=== PATIENT | female | born 1960 | race Caucasian/White ===

== ENCOUNTER 2024-05-12 13:38 | Emergency (ER) | payer OTHER, MEDICARE, SELFPAY ==
--- NOTE | ~2024-05-12 | XR_ITS ---
EXAMINATION: XR chest 2V DATE: 05/12/2024 14:04 INDICATION: Shortness of breath. TECHNIQUE: Frontal and lateral views of the chest were obtained. COMPARISON: Chest 2 views 02/08/2018 FINDINGS: There is mild atelectasis in right midlung zone. No pleural effusion or pneumothorax. The h eart size is normal. Epidural electrodes are noted. There is a right shoulder arthroplasty. IMPRESSION: 1. Mild atelectasis in right midlung zone. Reviewed, dictated and finalized at location A. 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
--- OUTSIDE RECORDS SUMMARY | 2024-05-12 13:43 | XMS_ITS | Encounter Summary ---
Author Organization [facility] Healthcare Address [address] [place] [address] Care Team Providers Care Systems Support Officer Name Role Phone Meg Espinal MD Primary Care Provider Simran Tapia MD Unavailable [phone] Encounter Details Date Type Department Care Team (Late st Contact Info) Description 12/22/2023 Orders Only [facility] [address] [facility] 1[address] [place] [address] Simran Tapia MD [address] [place] [address] Social History Tobacco Use Types Packs/Day Years Used Date Smoking Tobacco: Never Passive Smoke Exposure: Never Smokeless Tobacco: Never Alcohol Use Standard Drinks/Week Comments No 0 (1 standard drink = 0.6 oz pur e alcohol) AUDIT-C Answer Date Recorded Q1: How often do you have a drink containing alcohol? Never 12/25/2023 Q2: How many drinks containi ng alcohol do you have on a typical day when you are drinking? Patient does not drink Q3: How often do you have si x or more drinks on one occasion? Never 12/25/2023 Hunger Vital Sign Answer Date Recorded Worried About Running Out of Food in the Last Ye ar Not on file 08/06/2023 Within the past 12 months, t he food you bought just didn't last and you didn't have money to get more. Never true 08/06/2023 Personal Safety Answer Date Recorded Have you ever been in or are you currently in a harmful physical or emotional relationship or is someone making you feel afraid or unsafe? 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 Use a clean Q-tip to apply. Do not touch Q-tip to tube if it has touched the nose. 22 g 12/22/2023 5 documented in this encounter Plan of Treatment Not on file documented as of this encounter Goals Goal Patient Goal Type Associated Problems Recent Progress Patient-Stated? 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 Minimize further functional decline 2. Maximize quality of life 3. Control pain Strategies: - Activity/exercise program recommendation - Conservative stepwise pain medicine strategy with multi-disciplinary approach - Recommend healthy lifestyle strategies and compensatory methods as needed documented as of this encounter Visit Diagnoses Not on filedocumented in this encounter Discontinued Medications Medication Sig Discontinue Reason Start Date End Da te mupirocin (BACTROBAN) 2 % ointment Apply topically 3 (three) times a day Therapy completed 11/18/2023 12/22/2023 documented as of this encounter Orders Medications Ordered That Sebastien ht Not Have Been Administered Count Last Ordered Date First Ordered Date ceFAZolin (ANCEF) 2,000 mg/2 0 mL in sterile water (premix) 2,000 mg 1 12/22/2023 documented in this encounter Care Teams Systems Support Officer Relationship Specialty Start Date End Date Meg Espinal MD PCP - General Diagnostic Radiology 11/25/22 Simran Tapia MD [address] [place] [address] Anesthesiologist Pain Management 01/15/24 documented as of this encounter
--- OUTSIDE RECORDS SUMMARY | 2024-05-12 13:43 | XMS_ITS | Referral Summary ---
Author Organization [facility] al Address [address] [place] [address] Care Team Providers Care Gang Vibrator Operator Name Role Phone Meg Espinal MD Primary Care Provider Simran Tapia MD Unavailable [phone] Encounters Date Type Department Care Team Description 05/04/2024 Telephone [facility] [address] [place] [address] Advanced Medicine [address] [place] [id number] Simran Tapia MD Lidocaine patch PA approved through 03/30/25 04/26/2024 10:01 AM COURTESY DRIVER - 04/26/2024 11:59 PM COURTESY DRIVER Hospital Encounter [facility] [address] [place] [address] Advanced Medicine [address] [place] [address] Simran Tapia MD Spondylosis of cervical region without myelopathy or radiculopathy Discharge Disposition: Discharge to home or self care 04/22/2024 Telephone [facility] [address] [place] [address] for [facility] Medicine [address] [place] [address] Simran Tapia PMC Preprocedure 03/29/2024 Telephone [facility] [address] [place] [address] Advanced [facility] [address] [place] [address] Simran Tapia MD procedure response 03/29/2024 10:52 AM COURTESY DRIVER - 03/29/2024 11:59 PM COURTESY DRIVER Hospital Encounter [facility] [address] [place] [address] for [facility] Medicine [address] [place] [address] Simran Tapia MD Arthropathy of cervical facet joint (Primary Dx); Spondylosis of lumbar region without myelopathy or radiculopathy Discharge Disposition: Discharge to home or self care 03/22/2024 Telephone [facility] [address] [place] [address] for [facility] [address] [place] [address] Simran Tapia MD PMC Preprocedure 03/12/2024 Telephone [facility] [address] [place] [address] for [facility] Medicine [address] [place] [address] Simran Tapia MD Pre Cert 03/08/2024 Telephone [facility] [address] [place] [address] for [facility] [address] [place] [address] Simran Tapia MD Pre Cert 03/01/2024 Telephone [facility] [address] [place] [address] for [facility] Medicine [address] [place] [address] Sirman Tapia MD Pre Cert 02/25/2024 Telephone [facility] [address] [place] [address] for [facility] Medicine [address] [place] [address] Simran Tapia MD PMC Pre procedure instructions 02/19/2024 [facility] [address] [place] [address] for [facility] Medicine [address] [place] [address] Simran Tapia MD Pre Cert from Last 3 Months Allergies Active Allergy Reactions Criticality Noted Date Comments Adhesive Tape-Silicones Rash,Unknown Medium 04/06/2019 Lamotrigine Other (See comments) Low 01/13/2018 Causes hair loss Latex Rash,Blisters High 05/29/2020 Rizatriptan Palpitations High 04/28/2018 Sumatriptan Chest tightness Medium Topiramate Other (See comments) Low 01/13/2018 Causes hair loss Medications PROAIR HFA 90 mcg/actuation inhalerIndications :Bronchospasm Prevention,Chronic Obstructive Pulmonary Disease Inhale 2 puffs every 6 (six) hours as needed for shortness of breath or wheezing 08/05/19 18 Active fluticasone (FLONASE) 50 mcg/actuation nasal sprayIndications:A llergic Rhinitis Administer 2 sprays into each nostril 2 (two) times a day as needed for allergies 08/06/19 18 Active traZODone (DESYREL) 100 mg tabletIndications: insomnia associated with depression Take 2 tablets (200 mg total) by mouth nightly 12/10/19 18 Active ipratropium-albute rol (DUO-NEB) 0.5-2.5 mg/3 mL nebulizer solutionIndication s:Chronic Obstructive Pulmonary Disease with Bronchospasms Take 3 mL by nebulization every 6 (six) hours as needed for shortness of breath or wheezing 0 02/10/20 18 Active olopatadine (PATADAY) 0.2 % ophthalmic solutionIndication s:Allergic Conjunctivitis Administer 1 drop into both eyes 2 (two) times a day None in over a month 02/14/20 18 Active omeprazole (PriLOSEC) 40 mg capsuleIndications :Treatment of Non-Bleeding Gastric Disorder,gastroeso phageal reflux disease Take 1 capsule (40 mg total) by mouth nightly 07/17/19 21 Active rosuvastatin (CRESTOR) 10 mg tabletIndications: hyperlipidemia Take 1 tablet (10 mg total) by mouth every morning 07/08/19 23 Active cetirizine-pseudoe phedrine ER (ZyrTEC-D) 5-120 mg per 12 hr tabletIndications: Perennial Allergic Rhinitis Take 1 tablet by mouth every morning Active cholecalciferol (VITAMIN D-3) 2000 unit capsuleIndications :Osteoporosis,Nelly min D Deficiency Take 1 capsule (2,000 Units total) by mouth 2 (two) times a day Active nebivoloL (BYSTOLIC) 5 mg tabletIndications: hypertension Take 1 tablet (5 mg total) by mouth every morning 11/08/19 23 Active albuterol-budesoni de 90-80 mcg/actuation HFA aerosol inhaler 2 puff(s), Inhalation, [id number], PRN, 8.5 each, 0, NEEDED FOR SHORTNESS OF BREATH, 17, Route to Pharmacy Electronically, [id number], [id number], 155, cm, 02/07/23 11:49:00 COURTESY DRIVER, Height, 109.09, kg, 02/07/23 11:49:00 COURTESY DRIVER, Weight 12/06/19 23 Active Linzess 290 mcg capsuleIndications :Constipation Predominant Irritable Bowel Syndrome Take 1 capsule (290 mcg total) by mouth daily as needed 04/03/19 24 Active lidocaine (LIDODERM) 5 %Indications:Posth erpetic Neuralgia,do not use near incision site Apply 3 patches topically every morning Shoulder and knees, lower back 30 patch 11 05/27/19 24 Active Breztri Aerosphere 160-9-4.8 mcg/actuation inhalerIndications :Bronchospasm Prevention with COPD Inhale 2 puffs 2 (two) times a day 05/22/19 24 Active naloxone (NARCAN) 4 mg/actuation spray,non-aerosol Administer 1 spray into affected nostril(s) as needed for opioid reversal or respiratory depression Never had to use 06/09/19 24 Active BD Ultra-Fine Mini Pen Needle 31 gauge x 3/16 needle USE TO INJECT 4 TIMES DAILY 07/09/[address] (CYMBALTA) 30 mg capsule Take 1 capsule (30 mg total) by mouth daily 90 capsule 10/06/19 24 Active lidocaine (LIDODERM) 5 % Place 1 patch on the skin daily Remove & discard patch within 12 hours or as directed by MD. 30 patch 6 10/06/19 24 Active Additional Information Patient not taking.Informant: Self, Reported on 12/25/2023 insulin aspart niacinamide (FIASP) 100 unit/mL (3 mL) pen for injectionIndicatio ns:type 2 diabetes mellitus Inject 18 Units under the skin 2 (two) times a day with meals 10/31/19 24 Active TRESIBA 100 unit/mL (3 mL) pen for injectionIndicatio ns:type 2 diabetes mellitus Inject 0.64 mL (64 Units total) under the skin every morning Active butalbital-acetami nophen-caffeine (ESGIC) 50-325-40 mg per tabletIndications: Migraine Take 1 tablet by mouth every 4 (four) hours as needed for headaches 2 tablets once a month Active cyanocobalamin (Vitamin B-12) 1,000 mcg tabletIndications: Prevention of Vitamin B12 Deficiency Take 1 tablet (1,000 mcg total) by mouth every morning Active ALPRAZolam (XANAX) 0.25 mg tablet Take 1 tablet (0.25 mg total) by mouth nightly as needed for anxiety Active baclofen (LIORESAL) 5 mg tablet Take 1 tablet (5 mg total) by mouth 3 (three) times a day 270 tablet 1 12/26/19 24 025 Active meloxicam (MOBIC) 15 mg tabletIndications: Osteoarthritis Take 1 tablet (15 mg total) by mouth daily 30 tablet 01/19/20 24 Active sertraline (ZOLOFT) 100 mg tablet Take 1 tablet (100 mg total) by mouth 2 (two) times a day 01/03/20 24 Active amLODIPine (NORVASC) 5 mg tablet Take 1 tablet (5 mg total) by mouth daily 03/22/20 24 Active pregabalin (LYRICA) 300 mg capsule Take 1 capsule (300 mg total) by mouth 2 (two) times a day 60 capsule 3 04/05/19 25 Active buprenorphine (BUTRANS) 20 mcg/hour Place 1 patch on the skin every 7 days for 28 days 4 patch 05/03/19 25 025 Active tobramycin-dexAMET Hasone (TOBRADEX) ophthalmic solutionIndication s:Superficial Ocular Infection Administer 1 drop into both eyes daily as needed None in over a month 03/10/20 23 025 Discontin ued(Thera py completed ) mupirocin (BACTROBAN) 2 % ointment Apply topically 2 (two) times a day both nostrils for 2 days until sugery. Use a clean Q-tip to apply. Do not touch Q-tip to tube if it has touched the nose. 22 g 12/22/19 24 025 Discontin ued(Thera py completed ) chlorhexidine (HIBICLENS) 4 % external liquidIndications: Skin Disinfection As instructed by the clinic 120 mL 09/23/ 025 Discontin ued(Thera py completed ) ciprofloxacin (CILOXAN) 0.3 % ophthalmic solution PLACE 2 DROPS IN BOTH EYES EVERY 4 HOURS FOR 7 DAYS 03/08/20 24 025 Discontin ued(Thera py completed ) buprenorphine (BUTRANS) 20 mcg/hour Place 1 patch on the skin every 7 days for 28 days 4 patch 04/05/19 25 025 Discontin ued(Reord er) Active Problems Problem Noted Date Diagnosed Date Pain in the shoulder 10/14/2023 Asthma exacerbation 10/14/2023 Chest pain 10/14/2023 Physical deconditioning 10/14/2023 Connective tissue disease 10/14/2023 Other fatigue 07/03/2023 Sacroiliitis (HCC) - Bilateral 07/01/2023 Spondylosis of lumbar region without myelopathy or radiculopathy 07/01/2023 Arthropathy of cervical facet joint 07/01/2023 Shortness of breath 01/24/2023 Acute hypoxemic respiratory failure 01/24/2023 Assessment & Plan (01/25/2023 5:31 PM CDT): Chica Perez is a 62 year old female with a history of COPD (follows at [facility] with Dr. Jensen, on Symbicort and albuterol), CAD, HTN, primary hyperparathyroidism s/p parathyroidectomy, nephrolithiasis, osteoporosis, migraines, and GERD who was admitted on 01/21/23 after an elective, right total shoulder arthroplasty. Her post-operative course has been complicated by hypoxemic respiratory failure, requiring 2-3L of supplemental O2. Post-operative chest radiograph shows an elevated right hemidiaphragm. CT scan showed elevated right hemidiaphragm, RLL collapse and partial collapse of the RML. 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 Depending on severity of paralysis, discuss with pain regard potential removal of nerve block catheter - Walk O2 assessment prior to discharge - Azithromycin 500 mg daily for three days for bronchitis/COPD. - Schedule Duonebs - Defer prednisone for now, per patient preference. - Please encourage pulmonary toilet with Aerobika, IS, OOBTC. Elevated hemidiaphragm 01/24/2023 Assessment & Plan (01/24/2023 5:43 PM CDT): As above. S/P shoulder replacement, right 01/21/2023 Right carpal tunnel syndrome 10/31/2022 Glenohumeral arthritis, right 09/23/2022 Abnormal feces 08/21/2022 08/21/2022 Anxiety 08/21/2022 08/21/2022 Muscle pain 08/21/2022 08/21/2022 Chronic pain disorder 08/21/2022 08/21/2022 Chronic obstructive bronchitis 08/21/2022 0 08/21/2022 Diabetic polyneuropathy (CMS/HCC) 08/21/2022 08/21/2022 Dehydration symptoms 08/21/2022 08/21/2022 Disorder of connective tissue 08/21/2022 Disorder of intervertebral disc of lumbar spine 08/21/2022 08/21/2022 Dizziness and giddiness 08/21/2022 08/22/19 Dyspareunia due to medical condition in female 0 08/21/2022 08/21/2022 High serum ferritin 08/21/2022 08/21/2022 Gastroparesis 08/21/2022 08/21/2022 Fatty liver 08/21/2022 08/21/2022 Excessive sweating 08/21/2022 08/21/2022 Essential tremor 08/21/2022 08/21/2022 Elevated liver enzymes 08/21/2022 Hyperlipidemia 08/21/2022 08/21/2022 Incontinence 08/21/2022 08/21/2022 Insomnia 08/21/2022 08/21/2022 Intracranial aneurysm 08/21/2022 08/21/2022 Overview (08/21/2022): CTA 03/2015 4mm Morbid obesity 08/21/2022 08/21/2022 Polyp of colon 08/21/2022 08/21/2022 Polymyalgia rheumatica (CMS/HCC) 08/21/2022 08/21/2022 Pain in right knee 08/21/2022 08/21/2022 Osteopenia 08/21/2022 08/21/2022 Nausea 08/21/2022 08/21/2022 NAFL (nonalcoholic fatty liver) 08/21/2022 08/21/2022 Positive antinuclear antibody 08/21/2022 Recurrent herpes labialis 08/21/20222022 Rheumatoid arthritis(714.0) 08/21/202207/30 Synovitis and tenosynovitis, unspecified 023 08/21/2022 Overview (08/21/2022): achillies heel right Sinus congestion 08/21/2022 08/21/2022 Seasonal allergic rhinitis 08/21/202208/21 S/P parathyroidectomy 08/21/2022 08/21/2022 Tortuous colon 08/21/2022 08/21/2022 Vaginal atrophy 08/21/2022 08/21/2022 Vaginal dryness, menopausal 08/21/202207/30 Vitamin D deficiency 08/21/2022 08/21/2022 Diabetes mellitus 07/11/2022 08/21/2022 Acute non-recurrent maxillary sinusitis 11/07/1908/21/2022 Bronchitis 11/06/2021 08/21/2022 KRISTEN (acute kidney injury) 11/05/20212022 Irritable bowel syndrome (IBS) 04/28/2020 Abdominal bloating 09/20/2019 Adverse effect of other opioids, initial encount er 09/20/2019 Drug-induced constipation 09/20/2019 History of colonic polyps 09/20/2019 Vomiting without nausea 09/20/2019 HTN (hypertension) 08/07/2018 COPD (chronic obstructive pulmonary disease) 12/2018 Assessment & Plan (01/24/2023 5:43 PM CDT): As above. GERD (gastroesophageal reflux disease) 9 Chronic, continuous use of opioids 08/07/2018 Hypothyroid 08/07/2018 Primary osteoarthritis of right knee 07/02/2018 Overview (07/02/2018): Added automatically from request for surgery [id number] Stress fracture of right ankle 01/05/2018 Overview (01/05/2018): Added automatically from request for surgery [id number] Closed displaced fracture of lateral malleolus of fibula with routine healing 08/20/2017 Anemia 07/25/2017 Closed fracture of fibula 05/16/2017 Neuropathic pain syndrome (non-herpetic) 017 Medication overuse headache 10/09/2016 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 Pseudotumor cerebri 12/27/2015 Pseudopapilledema, bilateral 12/27/2015 Hyperparathyroidism 09/15/2015 Parathyroid adenoma 09/15/2015 Meningioma 08/10/2015 Nephrolithiasis 06/20/2015 Chronic migraine without aura 04/21/2015 Migraine headache 04/21/2015 Immunizations Name Administration Dates Next Due Influenza, Quadrivalent, Spl it, Preservative Free, Intramuscular 12/25/2018,12/26/2017 Influenza, Trivalent, IM (MDV) 9,01/01/2016,07/18/2015,12/27,02/04/2013 Influenza, Trivalent, Preser vative Free, Intramuscular 12/29/2016,12/30/2015 Influenza, Trivalent, Recomb inant, Egg Free, Preservative Free, Antibiotic Free, IM (FLUBLOK) 02/28/2016 Influenza, Unspecified 01/23/2022,2019,12/25/2018,12/26,02/28/2016,01/01/2016,07/18/2015 Pneumococcal Conjugate PCV 13 05/20/2017 Pneumococcal Polysaccharide PPV23 02/28/2016,07/2014 Tdap 12/27/2014,02/04/2013 Social History Tobacco Use Types Packs/Day Years Used Date Smoking Tobacco: Never Passive Smoke Exposure: Never Smokeless Tobacco: Never Tobacco Cessation:Counseling Given: Not Answered Alcohol Use Standard Drinks/Week Comments No 0 (1 standard drink = 0.6 oz pur e alcohol) AUDIT-C Answer Date Recorded Q1: How often do you have a drink containing alcohol? Never 04/26/2024 Q2: How many drinks containi ng alcohol do you have on a typical day when you are drinking? Patient does not drink Q3: How often do you have si x or more drinks on one occasion? Never 04/26/2024 Hunger Vital Sign Answer Date Recorded Worried [...] making you feel afraid or unsafe? Denies 01/15/2024 Comments No Sex and Gender Information Value Date Recorded Sex Assigned at Not on file Legal Sex Female 12:13 AM COURTESY DRIVER Gender Identity Not on file Sexual Orientation Not on file Occupation Industry Job Start Date Job End Date Retired/Disabled Not on file Not on file Not on file Last Filed Vital Signs Vital Sign Reading Time Taken Comments Blood Pressure 152/79 04/26/2024 1:45 PM COURTESY DRIVER Pulse 94 04/26/2024 1:45 PM COURTESY DRIVER Temperature 36.5 C (97.7 F) 04/26/2024 10:29 AM COURTESY DRIVER Respiratory Rate 16 04/26/2024 1:45 PM COURTESY DRIVER Oxygen Saturation 90% 04/26/2024 1:50 PM COURTESY DRIVER Inhaled Oxygen Concentration - - Weight 108.9 kg (240 lb) 04/26/2024 10:29 AM COURTESY DRIVER Height 152.4 cm (5') 04/26/2024 10:29 AM COURTESY DRIVER Body Mass Index 46.87 04/26/2024 10:29 AM COURTESY DRIVER Plan of Treatment Not on file Goals Goal Patient Goal Type Associated Problems Recent Progress Patient-Stated? Author CCM Chronic Pain Care Plan Chronic Care Management Worsening( 10:37 AM COURTESY DRIVER) No Dianne Ferro RN Note: Problem: Chronic Pain Goals: 1. Minimize further functional decline 2. Maximize quality of life 3. Control pain Strategies: - Activity/exercise program recommendation - Conservative stepwise pain medicine strategy with multi-disciplinary approach - Recommend healthy lifestyle strategies and compensatory methods as needed Medical Devices Implanted Type Area Cleaning Team Member Device Identifier Shelf Expiration Date Model / Serial / Lot [employer] rtho [id number] 3.5mm 20mm Self Tap Low Profile Hexagonal Cortex 20d 2.5mm Screw - [id number] Implanted:Qty: 1 on 01/16/2018 by Candace Dumont MD at [facility] Right: Tibia [employer]O rtho [id number] / / [employer] rtho [id number] 3.5mm 18mm Self Tap Low Profile Hexagonal Cortex 20d 2.5mm Screw - [id number] Implanted:Qty: 2 on 01/16/2018 by Candace Dumont MD at [facility] Right: Tibia [employer]/O rtho [id number] / / [employer] rtho [id number] 5mm 14mm Low Profile Hexagonal 15d 2.5mm Full Thread Screw Bone - [id number] Implanted:Qty: 2 on 01/16/2018 by Candace Dumont MD at [facility] Right: Tibia [employer] rtho [id number] / / [employer]tho [id number] 5mm 12mm Low Profile Hexagonal 15d 2.5mm Full Thread Screw Bone - [id number] Implanted:Qty: 1 on 01/16/2018 by Candace Dumont MD at [facility] Right: Tibia [employer]o [id number] / / [employer]o [id number] 3.5mm 36mm Self Tap Low Profile Hexagonal Cortex 20d 2.5mm Screw - [id number] Implanted:Qty: 1 on 01/16/2018 by Candace Dumont MD at [facility] Right: Tibia [employer]o [id number] / / [employer] [id number] 3.5mm 34mm Self Tap Low Profile Hexagonal Cortex 20d 2.5mm Screw - [id number] Implanted:Qty: 1 on 01/16/2018 by Candace Dumont MD at [facility] Right: Tibia [employer]tho [id number] / / [employer] r[employer]o [id number] Stacey-Loc Vlp 173enu4-3.7mm 7 Hole Variable Angle Lock Low Profile - S0 - [id number] Implanted:Qty: 1 on 01/16/2018 by Candace Dumont MD at [facility] Right: Fibula [employer] [id number] / 0 / [employer]o [id number] Stacey-Loc Vlp 127mm 6 Hole Variable Angle Locking Tibia Right - S0 - [id number] Implanted:Qty: 1 on 01/16/2018 by Candace Dumont MD at [facility] Right: Tibia [employer]tho [id number] / 0 / Medtronic Sofamor Danek [id number] Infuse 14mm 23mm Absorbable Sponge Sterile Water Syringe Needle - [id number] Implanted:Qty: 1 on 01/16/2018 by Candace Dumont MD at [facility] Right: Tibia [employer] Sofamor [employer] 06/28/2018 [id number] / / [id number] [employer] [id number] 3.5mm 12mm Self Tap Low Profile Hexagonal Cortex 20d 2.5mm Screw - [id number] Implanted:Qty: 1 on 01/16/2018 by Candace Dumont MD at [facility] Right: Tibia [employer] [id number] / / [employer] [id number] 3.5mm 28mm Self Tap Low Profile Hexagonal Cortex 20d 2.5mm Screw - [id number] Implanted:Qty: 1 on 01/16/2018 by Candace Dumont MD at [facility] Right: Tibia [employer] [id number] / / [employer]o [id number] 3.5mm 10mm Self Tap Low Profile Hexagonal Cortex 20d 2.5mm Screw - [id number] Implanted:Qty: 3 on 01/16/2018 by Candace Dumont MD at [facility] Right: Tibia [employer] [id number] / / [employer] rtho [id number] 3.5mm 34mm Self Tap Low Profile Hexagonal Cortex 20d 2.5mm Screw - [id number] Implanted:Qty: 2 on 01/16/2018 by Candace Dumont MD at [facility] Right: Tibia [employer] [id number] / / [employer]tho [id number] 3.5mm 24mm Self Tap Low Profile Hexagonal Cortex 20d 2.5mm Screw - [id number] Implanted:Qty: 1 on 01/16/2018 by Candace Dumont MD at [facility] Right: Tibia [employer]o [id number] / / Manuel Femoral Implanted:Qty: 1 on 08/11/2018 by Lino Carranza MD at [facility] [employer] [id number] 06/20/2023 / / [id number] [employer] 5531-G-209 Triathlon 9mm Cruciate Substitute Knee 2 Insert Tibial X3 - [id number] Implanted:Qty: 1 on 08/11/2018 by Lino Carranza MD at [facility] [employer] [id number] 02/04/2023 5531-G-209 / / [id number] [employer] 5536-B-200 Triathlon Knee 2 Component Tibial Sterile Latex Free - [id number] Implanted:Qty: 1 on 08/11/2018 by Lino Carranza MD at [facility] [employer] [id number] 01/31/2023 5536-B-200 / / [id number] [employer] Mccomb 3 Peg Monoblock Shoulder 3 Component Glenoid Sterile Dvsf2777 - [id number] Implanted:Qty: 1 on 01/21/2023 by Fransisco Ochoa MD at [facility] Right: Humerus [employer] [id number] 08/28/2028 [id number] / / [id number] [employer] Head Humeral Shoulder Reverse Stem Fixed Identity [id number] Custar Chromium [id number] - [id number] Implanted:Qty: 1 on 01/21/2023 by Fransisco Ochoa MD at [facility] Right: Humerus [employer] [id number] 11/15/2032 [id number] / / [id number] [employer] Stem Humeral Adapter Implant Shoulder Reverse 135 Degree Identity [id number] - [id number] Implanted:Qty: 1 on 01/21/2023 by Fransisco Ochoa MD at [facility] Right: Humerus [employer] [id number] 10/07/2032 [id number] / / [id number] [employer] Stem Humeral Shoulder Reverse Standard Size 6 Identity [id number] - [id number] Implanted:Qty: 1 on 01/21/2023 by Fransisco Ochoa MD at [facility] Right: Humerus [employer] [id number] 05/06/2032 [id number] / / [id number] [employer] Head Humeral Adapter Implant Shoulder Reverse Stem Fixed Identity [id number] - [id number] Implanted:Qty: 1 on 01/21/2023 by Fransisco Ochoa MD at [facility] Right: Humerus [employer] [id number] 10/04/2032 [id number] / / [id number] [employer] Simplex P Full Dose Radiopaque Preblend Cement Bone Tobramycin 6197-9-001 - [id number] Implanted:Qty: 1 on 01/21/2023 by Fransisco Ochoa MD at [facility] Right: Humerus [employer] [id number] 04/30/2024 6197-9-001 / / [id number] Explanted Type Area Cleaning Team Member Device Identifier Shelf Expiration Date Model / Serial / Lot Spinal Cord Stimulator Explanted:Qty : 1 on 01/15/2024 by Simran Tapia MD at [facility] Spinal Cord Stimulator Left: Buttocks Medtronic Description:Left flank [employer] /Ortho [id number] 5mm 16mm Low Profile Hexagonal 15d 2.5mm Full Thread Screw Bone - [id number] Explanted:Qty : 1 on 01/16/2018 at [facility] Right: Tibia [employer]/ Ortho [id number] / / Procedures Procedure Name Priority Date/Time Associated Diagnosis Comments PAIN MGMT IMAGING CERVICAL/THORACIC RFA BILATERAL Schedule Routine, Read Routine (OP Routine) 04/26/2024 1:22 PM COURTESY DRIVER Spondylosis of cervical region without myelopathy or radiculopathy PAIN MGMT IMAGING LUMBAR/SACRAL ABLATION BILATERAL Schedule Routine, Read Routine (OP Routine) 03/29/2024 1:08 PM COURTESY DRIVER Spondylosis of lumbar region without myelopathy or radiculopathy EGFR Timed 01/21/2023 10:43 PM CDT LIPID PANEL Timed 01/21/2023 10:43 PM CDT POCT HEMOGLOBIN A1C Routine 10/15/2022 10:51 AM CDT from Last 3 Months or Most Recently Relevant to Health Maintenance Results * Imaging Cervical/Thoracic Medial Branch RFA Bilateral ([id number]) (04/26/2024 1:22 PM COURTESY DRIVER) Narrative [facility]_PACS[facility] - 04/26/2024 1:23 PM COURTESY DRIVER The images from this study are not interpreted by Radiology. Please refer to the physician's procedure / OR operative note. Arjun Fleming MD IMG PAIN MGMT PROCEDURES Final R esult [facility] * Imaging Lumbar/Sacral Medial Branch RFA Bilateral ([id number]) (03/29/2024 1:08 PM COURTESY DRIVER) Narrative [facility]ACS_[facility] - 03/29/2024 1:09 PM COURTESY DRIVER The images from this study are not interpreted by Radiology. Please refer to the physician's procedure / OR operative note. Tereza Monroy MD PhD IMG PAIN MGMT PROCEDURE S Final Result [facility] * (ABNORMAL) eGFR (01/21/2023 10:43 PM CDT) eGFR 88(L) 90 - 130 mL/min/1. 73 m2 [facility] Comment: Interpretive Data Reference Interval Normal >/= 90 mL/min/1.73m2 Mildly decreased* 60 - 89 mL/min/1.73m2 Mildly to moderately decreased 45 - 59 mL/min/1.73m2 Moderately to severely decreased 30 - 44 mL/min/1.73m2 Severely decreased 15 - 29 mL/min/1.73m2 Kidney Failure < 15 mL/min/1.73m2 *Relative to young adult level Estimated glomerular filtration rate is determined by the 2020 CKD-EPI equation recommended by the National Kidney Foundation (A Unifying Approach to GFR Estimation: Recommendations of the NKF-ASK Task Force on Reassessing the Inclusion of Race in Diagnosing Kidney Disease, JASN 202). The CKD-EPI equation should not be used for patients with unstable renal function and has not been validated in children and those over 70. Current interpretive data was last reviewed 2021. Blood 01/21/2023 10:4 3 PM CDT 01/21/2023 10:54 PM CDT us Silvino Deleon MD LAB BLOOD ORDERABLES Elvira l Result [facility] Department [place] [address] * Lipid panel (01/21/2023 10:43 PM CDT) Cholesterol 146 30 - 199 mg/dL [facility] Comment: Interpretive Data Ages < or = 19 years Acceptable: <170 mg/dL Borderline high: 170-199 mg/dL High: >or= 200 mg/dL Ages > or = 20 years Desirable: <200 mg/dL Borderline high: 200-239 mg/dL High: >or= 240 mg/dL Literature References: 1. Expert Panel on Integrated Guidelines for Cardiovascular Health and Risk Reduction in Children and Adolescents. Pediatrics 2011;128:S213 2. NCEP Expert Panel. Circulation 2004;110:227 Current Interpretive Data was last revised on 2017. Triglycerides 117 <=149 mg/dL [facility] Comment: Interpretive Data Ages < or = 9 years Acceptable: <75 mg/dL Borderline high: 75-99 mg/dL High: >or= 100 mg/dL Ages 10 to 20 years Acceptable: <90 mg/dL Borderline high: 90-129 mg/dL High: >or= 130 mg/dL Ages > or = 20 years Desirable: <150 mg/dL Borderline high: 150-199 mg/dL High: 200-499 mg/dL Very high: >or= 499 mg/dL Literature References: 1. Expert Panel on Integrated Guidelines for Cardiovascular Health and Risk Reduction in Children and Adolescents. Pediatrics 2011;128:S213 2. NCEP Expert Panel. Circulation 2004;110:227 Current Interpretive Data was last revised on 2017. HDL 50 >=40 mg/dL [facility] Comment: Interpretive Data Ages < or = 19 years Acceptable: >45 mg/dL Borderline low: 40-45 mg/dL Low: <40 mg/dL Ages > or = 20 years Desirable: >or= 60 mg/dL Low: <40 mg/dL Literature References: 1. Expert Panel on Integrated Guidelines for Cardiovascular Health and Risk Reduction in Children and Adolescents. Pediatrics 2011;128:S213 2. NCEP Expert Panel. Circulation 2004;110:227 Current Interpretive Data was last revised on 2017. LDL, calculated 73 <=129 mg/dL [facility] Comment: Interpretive Data Ages < or = 19 years Acceptable: <110 mg/dL Borderline high: 110-129 mg/dL High: >or= 130 mg/dL Ages > or = 20 years Optimal: <100 mg/dL Near optimal: 100-129 mg/dL Borderline high: 130-159 mg/dL High: >160 mg/dL Literature References: 1. Expert Panel on Integrated Guidelines for Cardiovascular Health and Risk Reduction in Children and Adolescents. Pediatrics 2011;128:S213 2. NCEP Expert Panel. Circulation 2004;110:227 Current Interpretive Data was last revised on 2017. Non-HDL Cholesterol 96 mg/dL [facility] Comment: Interpretive Data Ages < or = 19 years Acceptable: <120 mg/dL Borderline high: 120-144 mg/dL High: >145 mg/dL Ages > or = 20 years When triglycerides are >200 mg/dL, Non-HDL cholesterol is a secondary target of therapy with treatment goals that are 30 mg/dL greater than the LDL cholesterol target. Literature References: 1. Expert Panel on Integrated Guidelines for Cardiovascular Health and Risk Reduction in Children and Adolescents. Pediatrics 2011;128:S213 2. NCEP Expert Panel. Circulation 2004;110:227 Current Interpretive Data was last revised on 2017. Chol/HDL ratio 3 [facility] Blood 01/21/2023 10:4 3 PM CDT 01/21/2023 10:54 PM CDT us Fransisco Ochoa MD LAB BLOOD ORDERAB LES Final Result Performing Organization Address [facility] de Phone Number [facility] Department [place] [address] * (ABNORMAL) POCT hemoglobin A1c (10/15/2022 10:51 AM CDT) Hgb A1C, POC 7.0(H) 4.0 - 5.6 % [facility] Est Average Gluc POC 154 mg/dL [facility] Comment: The ADA recommends reporting an estimated Average Glucose (eAG) with all Hemoglobin A1c results using the equation derived from a study of 507 normal and diabetic adults. Minority populations were underrepresented and children were not included. (Diabetes Care 31:2664-0638, 2008). The eAG is not equivalent to a fasting glucose. Blood 10/15/2022 10:5 1 AM CDT 10/15/2022 10:51 AM CDT Fransisco Ochoa MD POINT OF CARE GUILLAUME T ORDERABLES Final Result Performing Organization Address [facility]/ZIP Co de Phone Number [facility] [place] [address] from Last 3 Months or Most Recently Relevant to Health Maintenance [place] [address] MEDICARE MEDICARE [address] [place] [address] MEDICARE Advance Directives For more information, please contact: [phone] * Full Code (Latest Code Status on File) Date Activated Date Inactivated Comments 03/26/2023 9:50 AM 03/27/2023 4:57 AM * Full Code Date Activated Date Inactivated Comments 01/21/2023 3:33 PM 01/26/2023 10:30 PM * Full Code Date Activated Date Inactivated Comments 08/11/2018 12:50 PM 08/12/2018 7:10 PM Care Teams Gang 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
--- OUTSIDE RECORDS SUMMARY | 2024-05-12 13:43 | XMS_ITS | Clinical Summary ---
Author Organization [facility] Address [address] [place] [address] Care Team Providers Care Injection Molding Process Technician Name Role Phone Meg Espinal MD Primary Care Provider Simran Tapia MD Unavailable [phone] Allergies Active Allergy Reactions Criticality Noted Date [...] mcg/actuation HFA aerosol inhaler 2 puff(s), Inhalation, v8ohabd, PRN, 8.5 each, 0, NEEDED FOR SHORTNESS OF BREATH, 17, Route to Pharmacy Electronically, [id number], [id number], 155, cm, 02/07/23 11:49:00 PLANNING ADVISOR, Height, 109.09, kg, 02/07/23 11:49:00 PLANNING ADVISOR, Weight 12/06/19 23 Active Linzess 290 mcg [...] As instructed by the clinic 120 mL 12/22/19 24 025 Discontin ued(Thera py completed ) ciprofloxacin [...] with a history of COPD (follows at [facility] with Dr. Jensen, on Symbicort and albuterol), [...] obstructive bronchitis 08/21/2022 0 08/21/2022 Diabetic polyneuropathy (CMS/[facility]) 08/21/2022 08/21/2022 Dehydration symptoms 08/21/2022 08/21/2022 Disorder [...] Polyp of colon 08/21/2022 08/21/2022 Polymyalgia rheumatica ([facility]) 08/21/2022 08/21/2022 Pain in right knee 08/21/2022 [...] (07/02/2018): Added automatically from request for surgery [id number] Stress fracture of right ankle 01/05/2018 Overview (01/05/2018): Added automatically from request for surgery [id number] Closed displaced fracture of lateral malleolus of fibula with routine healing 08/20/2017 Anemia 07/25/2017 Closed fracture of fibula 05/16/2017 Neuropathic pain syndrome (non-herpetic) 017 Medication overuse headache 10/09/2016 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 Pseudotumor cerebri 12/27/2015 Pseudopapilledema, bilateral 12/27/2015 Hyperparathyroidism 09/15/2015 Parathyroid adenoma 09/15/2015 Meningioma 08/10/2015 Nephrolithiasis 06/20/2015 Chronic migraine without aura 04/21/2015 Migraine headache 04/21/2015 Encounters Date Type Department Care Team Description 05/04/2024 Telephone [facility] [address] [place] [address] for [facility] Medicine [address] [place] [address] Simran Tapia MD Lidocaine patch PA approved through 03/30/25 04/26/2024 10:01 AM PLANNING ADVISOR - 04/26/2024 11:59 PM PLANNING ADVISOR Hospital Encounter [facility] [address] [place] [address] for Advanced Medicine [address] [place] [address] Simran Tapia MD Spondylosis of cervical region without myelopathy or radiculopathy Discharge Disposition: Discharge to home or self care 04/22/2024 Telephone [facility] [address] [place] [address] for Advanced Medicine [address] [place] [address] Simran Tapia PMC Preprocedure 03/29/2024 10:52 AM PLANNING ADVISOR - 03/29/2024 11:59 PM PLANNING ADVISOR Hospital Encounter [facility] [address] [place] [address] Advanced Medicine [address] [place] [address] Simran Tapia MD Arthropathy of cervical facet joint (Primary Dx); Spondylosis of lumbar region without myelopathy or radiculopathy Discharge Disposition: Discharge to home or self care 03/29/2024 Telephone [facility] [address] [place] [address] for Advanced Medicine [address] [place] [address] Simran Tapia MD procedure response 03/22/2024 Telephone [facility] [address] [place] [address] for Advanced Medicine [address] [place] [address] Simran Tapia MD PMC Preprocedure 03/12/2024 Telephone [facility] [address] [place] [address] for Advanced Medicine [address] [place] [address] Simran Tapia MD Pre Cert 03/08/2024 Telephone [facility] [address] [place] [address] Advanced Medicine [address] [place] [address] Simran Tapia MD Pre Cert 03/01/2024 Telephone [facility] Medicine [address] [place] [address] Advanced Medicine [address] [place] [address] Simran Tapia MD Pre Cert 02/25/2024 Telephone [facility] [address] [facility] [address] [place] [address] Simran Tapia MD PMC Pre procedure instructions 02/19/2024 Telephone [facility] [address] [facility] [address] [place] [address] Simran Tapia MD Pre Cert from Last 3 Months Immunizations Name Administration Dates Next Due Influenza, Quadrivalent, Spl it, Preservative Free, Intramuscular 12/25/2018,12/26/2017 Influenza, Trivalent, IM (MDV) 9,01/01/2016,07/18/2015,12/27,02/04/2013 Influenza, Trivalent, Preser vative Free, Intramuscular 12/29/2016,12/30/2015 Influenza, Trivalent, Recomb inant, Egg Free, Preservative Free, Antibiotic Free, IM (FLUBLOK) 02/28/2016 Influenza, Unspecified 01/23/2022,2019,12/25/2018,12/26,02/28/2016,01/01/2016,07/18/2015 Pneumococcal Conjugate PCV 13 05/20/2017 Pneumococcal Polysaccharide PPV23 02/28/2016,07/2014 Tdap 12/27/2014,02/04/2013 Surgical History Surgery Date Site/Laterality Comments W[place] CYSTO W/URETEROSCOPY W/RMVL/MANJ STONES Cystoscopy With Ureteroscopy With Removal Of Calculus - (Added by TW Conv) CATARACT EXTRACTION W/ INTRAOCULAR LENS IMPLANT Bilateral Doesn't recall date FEMUR FRACTURE SURGERY 03/31/1977 - 03/30/1978 Right HERNIA REPAIR 03/31/2011 - 03/30/2012 PARATHYROIDECTOMY 12/05/2015 REFRACTIVE SURGERY Bilateral EXPLORATORY LAPAROTOMY EXCISIONAL HEMORRHOIDECTOMY 03/31/2011 - 03/30/2012 BACK SURGERY 03/31/2007 - 03/30/2008 Back Surgery - (Added by TW Conv) SPINAL CORD STIMULATOR IMPLANT 09/28/2010 - 10/28/2010 FLUORO GUIDED INJECTION SHOULDER RIGHT 07/16/2022 Right TOTAL KNEE ARTHROPLASTY 07/29/2018 - 08/28/2018 Right ANKLE SURGERY 03/31/2017 - 03/30/2018 HYSTERECTOMY 03/31/2001 - 03/30/2002 CARDIAC CATHETERIZATION 03/31/2017 - 03/30/2018 SHOULDER ARTHROPLASTY 12/29/2022 - 01/28/2023 Right CARPAL TUNNEL RELEASE 10/29/2022 - 11/28/2022 Right SPINAL CORD STIMULATOR REMOVAL 03/31/2019 - 03/30/2020 and replacement FLUORO GUIDED INJECTION SHOULDER LEFT 05/15/2023 Left FLUORO GUIDED INJECTION SHOULDER LEFT 09/23/2023 Left Medical History Medical History Date Comments Personal history of urinary calculi History of nephrolithiasis - (Added by TW Conv) Personal history of other di seases of the respiratory system History of chronic obstructi ve lung disease - (Added by TW Conv) Bipolar disorder ([facility]) Bipolar d isorder - (Added by TW Conv) Personal history of other di seases of the circulatory system History of hypertension - (A dded by TW Conv) Hyperparathyroidism ([facility]) Hyperp arathyroidism - (Added by TW Conv), history of Closed fracture of right femur ([facility]) Femur fracture, right - (Added by TW Conv) Heart attack ([facility]) 2011 Hypertension Peripheral neuropathy Thyroid disease Peptic ulceration Gastric reflux Hiatal hernia Kidney stone Rheumatoid arthritis (HCC) Osteoarthritis Migraines Depression IBS (irritable bowel syndrome) Meningioma ([facility]) benign Seasonal allergies Fatigue Hyperlipidemia Anxiety Headache Anemia Chronic back pain Status post insertion of spi nal cord stimulator 2010 left flank Lupus Abnormal ECG Asthma Chest pain COPD (chronic obstructive pu lmonary disease) ([facility]) History of transfusion Diabetes ([facility]) PONV (postoperative nausea and vomiting) Aspirated during surgery one time and got double lung pneumonia and gets pre op cocktail Motion sickness MRSA (methicillin resistant staph aureus) culture positive Difficult intravenous access Low back pain Joint pain Neck pain GERD (gastroesophageal reflux disease) Low back pain Family History Medical History Relation Name Comments Hypertension Daughter Asthma Father Family history of asthma - (Added by TW Conv) Diabetes Father Heart disease Father Family history of cardiac disorder - (Added by TW Conv) Transient ischemic attack Father Asthma Mother Family history of asthma - (Added by TW Conv) Heart attack Mother age 69 Heart disease Mother Family history of cardiac disorder - (Added by TW Conv) Hypertension Mother Osteoporosis Mother Stroke Mother Glaucoma Other Family history of glaucoma - Relation: Grandmother (Added by TW Conv) Osteoporosis Other Anesthesia problems Neg Hx Broken bones Neg Hx Hip fracture Neg Hx Kyphosis Neg Hx Scoliosis Neg Hx Relation Name Status Comments Daughter Alive Father Alive Mother Other Social History Tobacco Use Types Packs/Day Years [...] on file Legal Sex Female 12:13 AM PLANNING ADVISOR Gender Identity Not on file Sexual Orientation Not on file Occupation Industry Job Start Date Job End Date Retired/Disabled Not on file Not on file Not on file Obstetrics History Last Filed Vital Signs Vital Sign Reading Time Taken Comments Blood Pressure 152/79 04/26/2024 1:45 PM PLANNING ADVISOR Pulse 94 04/26/2024 1:45 PM PLANNING ADVISOR Temperature 36.5 C (97.7 F) 04/26/2024 10:29 AM PLANNING ADVISOR Respiratory Rate 16 04/26/2024 1:45 PM PLANNING ADVISOR Oxygen Saturation 90% 04/26/2024 1:50 PM PLANNING ADVISOR Inhaled Oxygen Concentration - - Weight 108.9 kg (240 lb) 04/26/2024 10:29 AM PLANNING ADVISOR Height 152.4 cm (5') 04/26/2024 10:29 AM PLANNING ADVISOR Body Mass Index 46.87 04/26/2024 10:29 AM PLANNING ADVISOR Plan of Treatment Health Maintenance Due Date Last Done Comments Albumin Creatinine Ratio, Urine 1961 Breast Cancer Screening-Mammogram 1961 Colon Cancer Screening-Colonoscopy 1961 Depression Screening 1961 Hepatitis C Screening 1961 Dilated Eye Exam 1961 Foot Exam 1961 Hepatitis B Screening 1979 Regular Well Visit/Exam 18-64 1979 Zoster Vaccine (1 of 2) 2011 Hemoglobin A1C 04/17/2023 10/15/2022 Influenza Vaccine (#1) 2023 , 01/18/2020, 01/20/2019, Additional history exists Lipid Panel 01/22/2024 01/21/2023, 11/06/2021 eGFR 01/22/2024 01/21/2023, 12/29, 10/15/2022 DTaP/Tdap/Td Vaccine (3 - Td or Tdap) 12/27/2024 12/27/2014, 02/04/2013 Pneumococcal vaccine <65 (3 of 3 - PPSV23 or PCV20) 2026 05/20/2017, 02/28/2016, 01/02/2015 Goals Goal Patient Goal Type Associated Problems Recent Progress Patient-Stated? Author CCM Chronic Pain Care Plan Chronic Care Management Worsening( 10:37 AM PLANNING ADVISOR) Dianne Bellamy, RN Note: Problem: Chronic Pain Goals: 1. Minimize further functional decline 2. Maximize quality of life 3. Control pain Strategies: - Activity/exercise program recommendation - Conservative stepwise pain medicine strategy with multi-disciplinary approach - Recommend healthy lifestyle strategies and compensatory methods as needed Medical Devices Implanted Type Area Port Engineer Device Identifier Shelf Expiration Date Model / Serial / Lot [employer]/O rtho [id number] 3.5mm 20mm Self Tap Low Profile Hexagonal Cortex 20d 2.5mm Screw - [id number] Implanted:Qty: 1 on 01/16/2018 by Candace Dumont MD at [facility] Right: Tibia [employer] rtho [id number] / / [employer]/O rtho [id number] 3.5mm 18mm Self Tap Low Profile Hexagonal Cortex 20d 2.5mm Screw - [id number] Implanted:Qty: 2 on 01/16/2018 by Candace Dumont MD at [facility] Right: Tibia [employer]/O rtho [id number] / / [employer]/O rtho [id number] 5mm 14mm Low Profile Hexagonal 15d 2.5mm Full Thread Screw Bone - [id number] Implanted:Qty: 2 on 01/16/2018 by Candace Dumont MD at [facility] Right: Tibia [employer]/O rtho [id number] / / [employer]/O rtho [id number] 5mm 12mm Low Profile Hexagonal 15d 2.5mm Full Thread Screw Bone - [id number] Implanted:Qty: 1 on 01/16/2018 by Candace Dumont MD at [facility] Right: Tibia [employer]/O rtho [id number] / / [employer]/O rtho [id number] 3.5mm 36mm Self Tap Low Profile Hexagonal Cortex 20d 2.5mm Screw - [id number] Implanted:Qty: 1 on 01/16/2018 by Candace Dumont MD at [facility] Right: Tibia [employer]/O rtho [id number] / / [employer] rtho [id number] 3.5mm 34mm Self Tap Low Profile Hexagonal Cortex 20d 2.5mm Screw - [id number] Implanted:Qty: 1 on 01/16/2018 by Candace Dumont MD at [facility] Right: Tibia [employer] rtho [id number] / / [employer]/O rtho [id number] Stacey-Loc Vlp 010vht7-6.7mm 7 Hole Variable Angle Lock Low Profile - S0 - [id number] Implanted:Qty: 1 on 01/16/2018 by Candace Dumont MD at [facility] Right: Fibula [employer]/O rtho [id number] / 0 / [employer]/O rtho [id number] Stacey-Loc Vlp 127mm 6 Hole Variable Angle Locking Tibia Right - S0 - [id number] Implanted:Qty: 1 on 01/16/2018 by Candace Dumont MD at [facility] Right: Tibia [employer]/O rtho [id number] / 0 / Medtronic Sofamor [place] [id number] Infuse 14mm 23mm Absorbable Sponge Sterile Water Syringe Needle - [id number] Implanted:Qty: 1 on 01/16/2018 by Candace Dumont MD at [facility] Right: Tibia [employer] Sofamor [employer] 06/28/2018 [id number] / / [id number] [employer]/O rtho [id number] 3.5mm 12mm Self Tap Low Profile Hexagonal Cortex 20d 2.5mm Screw - [id number] Implanted:Qty: 1 on 01/16/2018 by Candace Dumont MD at [facility] Right: Tibia [employer]/O rtho [id number] / / [employer]/O rtho [id number] 3.5mm 28mm Self Tap Low Profile Hexagonal Cortex 20d 2.5mm Screw - [id number] Implanted:Qty: 1 on 01/16/2018 by Candace Dumont MD at [facility] Right: Tibia [employer]/O rtho [id number] / / [employer]/O rtho [id number] 3.5mm 10mm Self Tap Low Profile Hexagonal Cortex 20d 2.5mm Screw - [id number] Implanted:Qty: 3 on 01/16/2018 by Candace Dumont MD at [facility] Right: Tibia [employer]/O rtho [id number] / / [employer]/O rtho [id number] 3.5mm 34mm Self Tap Low Profile Hexagonal Cortex 20d 2.5mm Screw - [id number] Implanted:Qty: 2 on 01/16/2018 by Candace Dumont MD at [facility] Right: Tibia [employer]/O rtho [id number] / / [employer]/O rtho [id number] 3.5mm 24mm Self Tap Low Profile Hexagonal Cortex 20d 2.5mm Screw - [id number] Implanted:Qty: 1 on 01/16/2018 by Candace Dumont MD at [facility] Right: Tibia [employer]O rtho [id number] / / [place] [employer] Implanted:Qty: 1 on 08/11/2018 by Lino Carranza MD at [facility] [employer] [id number] 06/20/2023 / / [id number] [employer] 5531-G-209 Triathlon 9mm Cruciate Substitute Knee 2 Insert Tibial X3 - [id number] Implanted:Qty: 1 on 08/11/2018 by Lino Carranza MD at [facility] [id number] 02/04/2023 5531-G-209 / / [id number] [employer] 5536-B-200 Triathlon Knee 2 Component Tibial Sterile Latex Free - [id number] Implanted:Qty: 1 on 08/11/2018 by Lino Carranza MD at [facility] [id number] 01/31/2023 5536-B-200 / / [id number] [employer] [place] 3 Peg Monoblock Shoulder 3 Component Glenoid Sterile Kijy0437 - [id number] Implanted:Qty: 1 on 01/21/2023 by Fransisco Ochoa MD at [facility] Right: Humerus [employer] [id number] 08/28/2028 [id number] / / [id number] [employer] Head Humeral Shoulder Reverse Stem Fixed Identity [id number] [place] [employer] [id number] - [id number] Implanted:Qty: 1 on 01/21/2023 by Fransisco Ochoa MD at [facility] Right: Humerus [employer] [id number] 11/15/2032 [id number] / / [id number] [employer] Stem Humeral Adapter Implant Shoulder Reverse 135 Degree Identity Dxyjd025 - [id number] Implanted:Qty: 1 on 01/21/2023 by Fransisco Ochoa MD at [facility] Right: Humerus [employer] [id number] 10/07/2032 [id number] / / [id number] [employer] Stem Humeral Shoulder Reverse Standard Size 6 Identity [id number] - [id number] Implanted:Qty: 1 on 01/21/2023 by Fransisco cOhoa MD at [facility] Right: Humerus [employer] [id number] 05/06/2032 [id number] / / [id number] [employer] Head Humeral Adapter Implant Shoulder Reverse Stem Fixed Identity Gxwoa574 - [id number] Implanted:Qty: 1 on 01/21/2023 by Fransisco Ochoa MD at [facility] Right: Humerus [employer] [id number] 10/04/2032 [id number] / / [id number] [employer] Simplex P Full Dose Radiopaque Preblend Cement Bone Tobramycin 6197-9-001 - [id number] Implanted:Qty: 1 on 01/21/2023 by Fransisco Ochoa MD at [facility] Right: Humerus [employer] [id number] 04/30/2024 6197-9-001 / / [id number] Explanted Type Area Port Engineer Device Identifier Shelf Expiration Date Model / Serial / Lot Spinal Cord Stimulator Explanted:Qty : 1 on 01/15/2024 by Simran Tapia MD at [facility] Spinal Cord Stimulator Left: Buttocks Medtronic Description:Left flank [employer] /Ortho [id number] 5mm 16mm Low Profile Hexagonal 15d 2.5mm Full Thread Screw Bone - [id number] Explanted:Qty : 1 on 01/16/2018 at [facility] Right: Tibia [employer]/ Ortho [id number] / / Procedures Procedure Name Priority Date/Time Associated Diagnosis Comments PAIN MGMT IMAGING CERVICAL/THORACIC RFA BILATERAL Schedule Routine, Read Routine (OP Routine) 04/26/2024 1:22 PM PLANNING ADVISOR Spondylosis of cervical region without myelopathy or radiculopathy PAIN MGMT IMAGING LUMBAR/SACRAL ABLATION BILATERAL Schedule Routine, Read Routine (OP Routine) 03/29/2024 1:08 PM PLANNING ADVISOR Spondylosis of lumbar region without myelopathy or radiculopathy EGFR Timed 01/21/2023 10:43 PM CDT LIPID PANEL Timed 01/21/2023 10:43 PM CDT POCT HEMOGLOBIN A1C Routine 10/15/2022 10:51 AM CDT from Last 3 Months or Most Recently Relevant to Health Maintenance Results * Imaging Cervical/Thoracic Medial Branch RFA Bilateral ([id number]) (04/26/2024 1:22 PM PLANNING ADVISOR) Narrative [facility] - 04/26/2024 1:23 PM PLANNING ADVISOR The images from this study are not interpreted by Radiology. Please refer to the physician's procedure / OR operative note. us Arjun STEINBERG PAIN MGMT PROCEDURES Final R esult [facility] * Imaging Lumbar/Sacral Medial Branch RFA Bilateral ([id number]) (03/29/2024 1:08 PM PLANNING ADVISOR) Narrative [facility] - 03/29/2024 1:09 PM PLANNING ADVISOR The images from this study are not interpreted by Radiology. Please refer to the physician's procedure / OR operative note. us Tereza Monroy MD PhD IMG PAIN MGMT PROCEDURE S Final Result Performing Organization Address City/[facility]/ZIP Co de Phone Number [facility] * (ABNORMAL) eGFR (01/21/2023 10:43 PM CDT) eGFR 88(L) 90 - 130 mL/min/1. 73 m2 [facility] Comment: Interpretive Data Reference Interval Normal >/= [...] of Race in Diagnosing Kidney Disease, JASN 2020). The CKD-EPI equation should not be used for patients with unstable renal function and has not been validated in children and those over 70. Current interpretive data was last reviewed 2021. Blood 01/21/2023 10:4 3 PM CDT 01/21/2023 10:54 PM CDT us Silvino Deleon MD LAB BLOOD ORDERABLES Elvira l Result Performing Organization Address City/[facility] Co de Phone Number [facility] Department [place] [address] * Lipid panel (01/21/2023 10:43 PM CDT) Cholesterol 146 30 - 199 mg/dL [facility] Comment: Interpretive Data Ages < or = [...] revised on 2017. Triglycerides 117 <=149 mg/dL [facility] Comment: Interpretive Data Ages < or = [...] revised on 2017. HDL 50 >=40 mg/dL [facility] Comment: Interpretive Data Ages < or = [...] on 2017. LDL, calculated 73 <=129 mg/dL [facility] Comment: Interpretive Data Ages < or = [...] revised on 2017. Non-HDL Cholesterol 96 mg/dL [facility] Comment: Interpretive Data Ages < or = [...] last revised on 2017. Chol/HDL ratio 3 [facility] Blood 01/21/2023 10:4 3 PM CDT 01/21/2023 10:54 PM CDT Fransisco Ochoa MD LAB BLOOD ORDERAB LES Final Result Performing Organization Address [facility] de Phone Number [facility] [place] [address] * (ABNORMAL) POCT hemoglobin A1c (10/15/2022 10:51 AM CDT) Hgb A1C, POC 7.0(H) 4.0 - 5.6 % [facility] Est Average Gluc POC 154 mg/dL [facility] Comment: The ADA recommends reporting an estimated Average Glucose (eAG) with all Hemoglobin A1c results using the equation derived from a study of 507 normal and diabetic adults. Minority populations were underrepresented and children were not included. (Diabetes Care 31:8568-7810, 2008). The eAG is not equivalent to a fasting glucose. Blood 10/15/2022 10:5 1 AM CDT 10/15/2022 10:51 AM CDT Fransisco Ochoa MD POINT OF CARE GUILLAUME T ORDERABLES Final Result Performing Organization Address [facility] Co de Phone Number [facility] [place] [address] from Last 3 Months or Most Recently Relevant to Health Maintenance Insurance MEDICARE Member Subscriber Plan / Payer (Ef fective 2013-Present) Name:CHICA PEREZ Member ID:[id number] Relation to Subscriber:Self Name:Chica Perez Subscriber ID:[id number] Payer ID:[id number] Group ID:Not on file Type:MEDICARE TRADITIONAL Address: [id number] [place] [address] MEDICARE [address] [place] [address] MEDICARE [address] [place] [address] MEDICARE Advance Directives For more information, please contact: [phone] * Full Code (Latest Code Status on File) Date Activated Date Inactivated Comments 03/26/2023 9:50 AM 03/27/2023 4:57 AM * Full Code Date Activated Date Inactivated Comments 01/21/2023 3:33 PM 01/26/2023 10:30 PM * Full Code Date Activated Date Inactivated Comments 08/11/2018 12:50 PM 08/12/2018 7:10 PM Care Teams Injection Molding Process Technician Relationship Specialty Start Date End Date Meg Espinal MD PCP - General Diagnostic Radiology 11/25/22 Simran Tapia MD [address] [place] [address] Anesthesiologist Pain Management 01/15/24
--- OUTSIDE RECORDS SUMMARY | 2024-05-12 13:43 | XMS_ITS | Encounter Summary ---
Author Organization [facility] Healthcare Address [address] [place] [address] Care Team Providers Care Manager Financial Name Role Phone Meg Espinal MD Primary Care Provider Simran Tapia MD Unavailable [phone] Encounter Details Date Type Department Care Team (Late st Contact Info) Description 05/27/2023 Telephone [facility] [address] [facility] [address] [place] [address] Simran Tapia MD [address] [place] [address] Social History Tobacco Use Types Packs/Day Years Used Date Smoking Tobacco: Never Passive Smoke Exposure: Never Smokeless Tobacco: Never Alcohol Use Standard Drinks/Week Comments No 0 (1 standard drink = 0.6 oz pur e alcohol) AUDIT-C Answer Date Recorded Q1: How often do you have a drink containing alcohol? Never 04/30/2023 Q2: How many drinks containi ng alcohol do you have on a typical day when you are drinking? Patient does not drink Q3: How often do you have si x or more drinks on one occasion? Never 04/30/2023 Hunger Vital Sign Answer Date Recorded Within the past 12 months, y ou worried that your food would run out before you got the money to buy more. Never true 04/30/19 24 Within the past 12 months, t he food you bought just didn't last and you didn't have money to get more. Never true 04/30/2023 Personal Safety Answer Date Recorded Have you ever been in or are you currently in a harmful physical or emotional relationship or is someone making you feel afraid or unsafe? Denies 05/15/2023 Comments No Sex and Gender Information Value Date Recorded Sex Assigned at Not on file Legal Sex Female 12:13 AM STRIKER OUT Gender Identity Not on file Sexual Orientation Not on file Occupation Industry Job Start Date Job End Date Retired/Disabled Not on file Not on file Not on file documented as of this encounter Plan of Treatment Not on file documented as of this encounter Goals Goal Patient Goal Type Associated Problems Recent Progress Patient-Stated? Author CCM Chronic Pain Care Plan Chronic Care Management Worsening( 10:37 AM STRIKER OUT) No Dianne Ferro RN Note: Problem: Chronic Pain Goals: 1. Minimize further functional decline 2. Maximize quality of life 3. Control pain Strategies: - Activity/exercise program recommendation - Conservative stepwise pain medicine strategy with multi-disciplinary approach - Recommend healthy lifestyle strategies and compensatory methods as needed documented as of this encounter Visit Diagnoses Not on filedocumented in this encounter Care Teams Manager Financial Relationship Specialty Start Date End Date Meg Espinal MD PCP - General Diagnostic Radiology 11/25/22 Simran Tapia MD [address] [place] [address] Anesthesiologist Pain Management 01/15/24 documented as of this encounter
--- OUTSIDE RECORDS SUMMARY | 2024-05-12 13:43 | XMS_ITS | Patient Health Record ---
Author Organization [facility] [employer] [employer] Address [address] [facility] [address] [place] [address] Care Team Providers Care Wet Mixer Name Role Phone Rosalee BRANHAM, Karen Primary Care Provider Rudy Manning Unavailable [phone] Allergies Allergen (clinical drug ingredient) Drug/Non Drug Allergy documented on EMR Reaction Allergy Type Onset Date Status Adhesive Tape (uncoded) Unknown Allergy Active Latex Latex (uncoded) Unknown Allergy Acti ve sumatriptan Imitrex Unknown Drug Allergy Activ e rizatriptan Maxalt Unknown Drug Allergy Activ e topiramate Topamax Unknown Drug Allergy Active Reason For Referral No Information Medications Medication SIG (Take, Route, Frequency, Duration) Notes Start Date End Date Status Zofran Active Budesonide-Formoterol Fumarate Active Sertraline HCl Activ e traZODone HCl Active valACYclovir HCl Act ely OTC/Vitamins ASA, Vitamin D3, Meloxicam, Singular Active Albuterol Active Diclofenac Active Famotidine Active guaiFENesin Active Omeprazole Active Immunizations Vaccine Route Administration Date Status Comme nts Influenza Vaccination Unknown 12/29/2016 Administered Pneumonia Vaccination Unknown 05/20/2017 Administered Social History Tobacco Use: Social History Observation Description Date Details (start date - stop date) Never Smoker NA - NA Tobacco Use/Smoking Question Answer Notes Are you a nonsmoker Problems Problem Type SNOMED Code ICD Code Onset Dates Problem Status W/U Status Risk Notes Problem 591326048 Gastroparesis (K31.84) Active confirmed Problem 206379365 Nausea (R11.0) Active confirmed She has symptoms of nausea when her blood sugars get too high or too low. Problem 468283617 Adverse effect of other opioids, initial encounter (T40.2X5A) Active confirmed Problem 510243424 Fatty liver (K76.0) Active confirmed Problem 508736066 Colon cancer screening (Z12.11) Active confirmed Problem 046620862 GERD (gastroesophage al reflux disease) (K21.9) Active confirmed She is taking omeprazole daily for management of GERD. Her last upper endoscopy in June 2017 revealed grade B reflux esophagitis. Problem 173442084 History of colon polyps (Z86.010) Active confirmed Problem 39946466 Dysphagia (R13.10) Active confirmed She had her esophagus dilated in 2018. More recently, she has been having more frequent episodes of dysphagia with bulky food items. She frequently has to regurgitate food back up. Problem 049429637 Elevated liver enzymes (R74.8) Active confirmed Her recent liver enzymes were elevated. Her AST was 106 and her ALT was 100. She had a negative hepatitis panel. She denies having any jaundice. She does not drink alcohol. She had a blood transfusion over [address] and ultrasound in May showed fatty liver. Suspect liver enzyme elevation related to fatty liver disease. However, we'll have her obtain additional bloodwork to rule out autoimmune and metabolic causes. Problem 818335679 Chronic GERD (K21.9) Active confirmed She is experiencing ongoing GERD symptoms despite PPI's. Problem 055785467 Abdominal bloating (R14.0) Active confirmed Problem 986832273 Elevated ferritin (R79.89) Active confirmed Problem 686847921907864 Drug induced constipation (K59.03) Active confirmed Problem 06408004485411 Tortuous colon (Q43.8) Active confirmed Problem 27163323 Drug-induced constipation (K59.03) Active confirmed Problem 336352858 Non-intractable vomiting without nausea, unspecified vomiting type (R11.11) Active confirmed Suspect underlying gastroparesis, however would like to exclude peptic ulcer disease given her prednisone use. Other considerations include side effect of medications, small bowel process, pancreatitis or other. Problem 42193157 Guaiac positive stools (R19.5) Active confirmed She denies seeing any blood in the stool, but had a positive stool guaiac. It has been over 10 years since her last colonoscopy. She did have a normal Cologuard 3 years ago. Problem 88901090 Esophageal dysphagia (R13.10) Active confirmed Differential diagnosis includes optic stricture, Schatzki's ring, eosinophilic esophagitis or other. Plan Of Treatment Pending Test Test Name Order Date Upper Endoscopy 06/01/2020 Colonoscopy 06/01/2020 IRON AND TOTAL IRON BINDING CAPACITY 06/2020 TISSUE TRANSGLUTAMINASE AB, IGA 06/02/19 21 [id number] QN 06/01/2020 MITOCHONDRIAL ANTIBODY W/REFL TITER 03/0 06/2020 ACTIN (SMOOTH MUSCLE) ANTIBODY (IGG) 06/2020 FERRITIN 06/01/2020 TSH 06/01/2020 HEREDITARY HEMOCHROMA TOSIS DNA MUTATION ANAL 06/23/2020 ANCA SCREEN WITH REFLEX TO TITER 021 Immunoglobulin A, Qn, Serum 06/01/2020 Antigliadin(deamidated) Abs, IgG 021 Antinuclear Antibodies Direct 06/01/2020 t-Transglutaminase (tTG) IgG 06/01/2020 Initiate SIBO 07/25/2017 CRP 06/01/2020 Hepatic Function 06/01/2020 Hepatic Function 06/23/2020 CT SCAN COLONOGRAPHY DIAGNOSTIC 07/21/[address] SCAN COLONOGRAPHY SCREENING Future Test Test Name Order Date HEREDITARY HEMOCHROMA TOSIS DNA MUTATION ANAL 07/26/2020 Hepatic Function 07/26/2020 Insurance Providers Payer Name Payer Address Payer Phone Subscriber Number Group Number Insured Name Patient Relationship to Insured Coverage Start Date Coverage End Date Medicare E2 [address] [address] [place] [address] [id number] Chica Osborn Self - patient is the insured Medical (General) History Medical History History ICD Code Colon polyps Hemorrhoids GERD Kidney stones Migraines Depression Insomnia Lupus Chronic Sinusitis Pneumonia COPD and Chronic Bronchitis Ulcers Hypertension Herpes Hyperlipidemia CVA Coronary Artery Disease Polymyalgia Rheumatica Surgical History Surgery Date(Month/Year) EGD 06/2017 Abdominal hernia repair 2012 Hemorrhoid surgery 2012 Lithotripsy 2016 Cataract surgery 2013 Stomach surgery 2012 Back surgery stimulator 2011 Back surgery L4 L5 2008 Sinus surgery 2004 Hysterectomy 2004 Lasik surgery 1999 Hospitalization History Reason Date(Month/Year) [facility]:IB[facility] 05/2020 Several hospital stays: COPD, RVS, Bronc hiti 06/2015 Major constipation, tumors, stones, RSV, major bladder leakage 2015 Heart attack 2007
--- OUTSIDE RECORDS SUMMARY | 2024-05-12 13:43 | XMS_ITS | Encounter Summary ---
Author Organization [facility] Healthcare Address [address] [place] [address] Care Team Providers Care Commercial Leasing Manager Name Role Phone Meg Espinal MD Primary Care Provider Simran Tapia MD Unavailable [phone] Reason for Visit * Reason Onset Date Comments PMC Preprocedure 04/22/2024 Encounter Details Date Type Department Care Team (Late st Contact Info) Description 04/22/2024 Telephone [facility] [address] [place] [id number] Simran Tapia PMC Preprocedure Social History Tobacco Use Types Packs/Day Years [...] on file Legal Sex Female 12:13 AM SENIOR SHAREPOINT DEVELOPER Gender Identity Not on file Sexual Orientation [...] Plan Chronic Care Management Worsening( 10:37 AM SENIOR SHAREPOINT DEVELOPER) Dianne Bellamy RN Note: Problem: Chronic Pain Goals: 1. Minimize further functional decline 2. Maximize quality of life 3. Control pain Strategies: - Activity/exercise program recommendation - Conservative stepwise pain medicine strategy with multi-disciplinary approach - Recommend healthy lifestyle strategies and compensatory methods as needed documented as of this encounter Visit Diagnoses Not on filedocumented in this encounter Care Teams Commercial Leasing Manager Relationship Specialty Start Date End Date Meg Espinal MD PCP - General Diagnostic Radiology 11/25/22 Simran Tapia MD [address] [place] [address] Anesthesiologist Pain Management 01/15/24 documented as of this encounter
--- OUTSIDE RECORDS SUMMARY | 2024-05-12 13:43 | XMS_ITS | Clinical Summary ---
Author Organization [facility] Address [address] [place] [address] Phone Care Team Providers Care Bicycle Fitter Name Role Phone Karen Turk MD Primary Care Provider [phone] Allergies Active Allergy Reactions Criticality Noted Date Comments Adhesive Tape-Silicones Rash Low 04/06/2019 Latex 02/16/2019 Added based on information entered during case entry, please review and add reactions, type, and severity as needed Rizatriptan Other (See Comments) 04/06/2019 Cardiac arrest Sumatriptan Succinate Other (See Comments) 04/06/2019 Cardiac arrest Topiramate Unknown 04/06/2019 Medications pregabalin (LYRICA) 300 mg Capsule Take 300 mg by mouth 2 times daily. Active fentaNYL (DURAGESIC) 50 mcg/hr patch Apply 1 Patch to skin as directed every third day. Active HYDROcodone-aceta minophen (NORCO) 10-325 mg Tablet Take 1 Tablet by mouth every 6 hours as needed for Pain, Moderate. Active tiZANidine (ZANAFLEX) 4 mg Capsule Take 4 mg by mouth daily at bedtime. Can take 1-3 capsules at bedtime Active lidocaine (LIDODERM) 5 % Adhesive Patch, Medicated Apply 5 Patches to affected area every 24 hours. Active losartan (COZAAR) 100 mg tablet Take 100 mg by mouth daily. Active sertraline (ZOLOFT) 100 mg tablet Take 100 mg by mouth daily. 1 1/2 tabs daily Active traZODone (DESYREL) 100 mg tablet Take 100 mg by mouth daily at bedtime. 1-3 capsules at bedtime Active ARIPiprazole (ABILIFY) 5 mg tablet Take 5 mg by mouth daily. Active raNITIdine (ZANTAC) 300 mg tablet Take 300 mg by mouth 2 times daily. Active docusate sodium (COLACE) 100 mg capsule Take 100 mg by mouth daily. 4 capsules daily Active sennosides (SENOKOT) 8.6 mg tablet Take 8.6 mg by mouth daily. Takes 3 tablets Active linaCLOtide (Linzess) 290 mcg capsule Take 290 mcg by mouth daily before breakfast. Active famotidine-calciu m carbonate-magnesi um hydroxide (PEPCID COMPLETE) 10-800-165 mg Tablet, Chewable Take 2 Tablets by mouth daily at bedtime. Active phenobarb/hyoscy/ atropine/scop ( ORAL) Take 1 Tablet by mouth 3 times daily as needed (gas). Active cetirizine HCl/pseudoephedri ne (ZYRTEC-D ORAL) Take by mouth. Activ e montelukast (SINGULAIR) 10 mg tablet Take 10 mg by mouth daily at bedtime. Active fluticasone propionate (FLONASE) 50 mcg/spray [place], Suspension nasal inhaler Administer 2 Sprays in each nostril daily. Active ipratropium bromide (ATROVENT) 0.03 % [place], Non-Aerosol Administer 2 Sprays in each nostril 1 time daily as needed. Active budesonide-formot corina (SYMBICORT) 160-4.5 mcg/actuation HFA Aerosol Inhaler Take 2 Puffs by inhalation 2 times daily. Active albuterol HFA 90 mcg inhaler Take 2 Puffs by inhalation every 6 hours as needed for Shortness of Breath. Active ipratropium-albut corina (DUONEB) 0.5 mg-3 mg(2.5 mg base)/3 mL Solution for Nebulization Take 3 mL by inhalation. Active olopatadine (Pataday) 0.2 % solution Administer 2 Drops in both eyes 2 times daily. Active codeine-guaiFENes in (ROBITUSSIN-AC) 10-100 mg/5 mL Liquid Take 10 mL by mouth every 6 hours as needed for Cough. Active acetaminophen-caf feine-butalbital (Fioricet) 300-40-50 mg capsule Take by mouth every 4 hours as needed for Migraine. Active ondansetron (ZOFRAN) 4 mg Tablet Take 8 mg by mouth every 4 hours as needed for Nausea/Emesis. Active chlorpheniramine maleate (CHLOR-TABLET ORAL) Take 4 mg by mouth every 4 hours as needed. 2 tabs Active acyclovir (ZOVIRAX) 5 % Ointment Apply to affected area every 4 hours. Apply to affected area 6 times a day Active valACYclovir (VALTREX) 500 mg tablet Take 500 mg by mouth 2 times daily. Active mupirocin calcium (Bactroban) 2 % Cream Apply to affected area 3 times daily. Active nystatin (MYCOSTATIN) 100,000 unit/gram Ointment Apply to affected area 2 times daily. Active nitroglycerin (NITRODUR) 0.1 mg/hr patch Apply 1 Patch to skin as directed 2 times daily as needed for Chest Pain. Active nystatin (MYCOSTATIN) 100,000 unit/mL suspension Take 1,000,000 Units by mouth 4 times daily. Active cyanocobalamin 1,000 mcg Tablet Take 1,000 mcg by mouth daily. Active calcium as carbonate (TUMS) 500 mg (200 mg elemental) Tablet, Chewable Take 400 mg by mouth 3 times daily. Active famotidine (PEPCID) 10 mg tablet Take 10 mg by mouth 2 times daily. Active aspirin (JACK CHEWABLE) 81 mg Tablet, Chewable Take 81 mg by mouth daily. Active olmesartan-hydroC HLOROthiazide (BENICAR-HCT) 20-12.5 mg tablet Take 1 Tablet by mouth. Active Immunizations Immunization Administration Dates Next Due Influenza Seasonal Unspecified Formulation IM Social History Tobacco Use Types Packs/Day Years Used Date Smoking Tobacco: Never Smokeless Tobacco: Never Alcohol Use Standard Drinks/Week Comments Never 0 (1 standard drink = 0.6 oz pur e alcohol) Comments No Sex and Gender Information Value Date Recorded Sex Assigned at Not on file Legal Sex Female 1:12 PM CDT Gender Identity Not on file Sexual Orientation Not on file Last Filed Vital Signs Vital Sign Reading Time Taken Comments Blood Pressure 122/68 04/29/2019 12:42 PM LIBRARY MEDIA ASSISTANT Pulse 77 04/29/2019 11:17 AM LIBRARY MEDIA ASSISTANT Temperature 36.2 C (97.2 F) 04/29/2019 12:42 PM LIBRARY MEDIA ASSISTANT Respiratory Rate 18 04/29/2019 12:42 PM LIBRARY MEDIA ASSISTANT Oxygen Saturation 93% 04/29/2019 12:42 PM LIBRARY MEDIA ASSISTANT Inhaled Oxygen Concentration - - Weight 105.2 kg (232 lb) 04/29/2019 7:20 AM LIBRARY MEDIA ASSISTANT Height 154.9 cm (5' 1 ) 04/29/2019 7:20 AM LIBRARY MEDIA ASSISTANT Body Mass Index 43.84 04/29/2019 7:20 AM LIBRARY MEDIA ASSISTANT Plan of Treatment Health Maintenance Due Date Last Done Comments DTAP/TDAP/TD VACCINES (1 - Tdap) 1980 CERVICAL CANCER SCREENING 1991 BREAST CANCER SCREENING 2001 COLORECTAL SCREENING 2006 Colorectal Cancer Screening 2006 FIT-DNA Q 3 years 2006 FIT/FOBT Q 1 year 2006 Flex Sig/CT Colonography Q 5 years 2006 ZOSTER VACCINE (1 of 2) 2011 RSV VACCINE (60+ or ) (1 - Risk 60-74 years 1-dose series) 2021 INFLUENZA VACCINE (#1) 2023 01/20/2019, 2015 Medical Devices Implanted Type Area Obiee Consultant Device Identifier Shelf Expiration Date Model / Serial / Lot Patient Controller [id number] Implanted:Qty: 1 on 04/29/2019 by Mirtha Carr MD at [facility] [employer]- NEUROLOGIC TECH [id number] / / [id number] N Description:All Medtronic co mponents are processed on requisition [id number]. Patient Charge [id number] Implanted:Qty: 1 on 04/29/2019 by Mirtha Carr MD at [facility] [employer]- NEUROLOGIC TECH [id number] / / [id number] Nerve Stimulator Intellis Adaptivestim Implanted:Qty: 1 on 04/29/2019 by Mirtha Carr MD at [facility] N/A: Back [employer]- NEUROLOGIC TECH 03/13/2020 [id number] / [id number] / Explanted Type Area Obiee Consultant Device Identifier Shelf Expiration Date Model / Serial / Lot Generator Medtronic Ultra Explanted:Qty: 1 on 04/29/2019 by Mirtha Carr MD at [facility] Insurance MEDICARE PART A AND B Advance Directives For more information, please contact: [phone] * Full Code (Latest Code Status on File) Date Activated Date Inactivated Comments 04/29/2019 8:35 AM 04/29/2019 3:09 PM * Full Code Date Activated Date Inactivated Comments 04/29/2019 7:16 AM 04/29/2019 8:35 AM Care Teams Bicycle Fitter Relationship Specialty Start Date End Date Karen Turk MD [address] [facility] [address] [place] [id number] PCP - General Internal Medicine 11/26/16
--- OUTSIDE RECORDS SUMMARY | 2024-05-12 13:43 | XMS_ITS | Clinical Summary ---
Author Organization [facility] Care Team Providers Care Dean Of Admissions Name Role Phone Unavailable Primary Care Provider Unavailabl e Social History Tobacco Use Types Packs/Day Years Used Date Smoking Tobacco: Never Assessed Comments Unknown Sex and Gender Information Value Date Recorded Sex Assigned at Not on file Legal Sex Female 8:40 PM CDT Gender Identity Not on file Sexual Orientation Not on file Plan of Treatment Health Maintenance Due Date Last Done Comments Hepatitis C Virus (HCV) Screening 1961 Pap Smear 1982 Cervical Cancer Screening (CCS) 1991 HPV/Cotest 1991 Colonoscopy 2006 Colorectal Cancer Screening 2006 Cologuard 2011 Immunochemical Fecal Occult Blood 2011 Mammogram 2011 Pneumococcal Immunization (5 0+ years) (1 of 1 - PCV) 2011 Zoster Immunization (1 of 2) 2011 Influenza Immunization (#1) 2023 09/3 , 12/25/2018 SARS-COV-2 Immunization (2 - season) 2023 07/08/2020 Respiratory Syncytial Virus (RSV) Immunization (Adult) (1 - 1-dose 75+ series) 2036 DTaP/Tdap/Td Immunization Discontinued 2014, 02/04/2013 TdaP Immunization Completed 12/27/2014, 02/04/2013 Hepatitis B Immunization Aged Out No longer eligible based on patient's age to complete this topic Meningococcal Immunization (ACWY) Aged Out No longer eligible based on patient's age to complete this topic Pneumococcal Immunization Combined Aged Out No longer eligible based on patient's age to complete this topic Rotavirus Immunization Aged Out No lo nger eligible based on patient's age to complete this topic
--- OUTSIDE RECORDS SUMMARY | 2024-05-12 13:44 | XMS_ITS | Clinical Summary ---
Author Organization [facility] Address [address] [place] [address] Care Team Providers Care Hothouse Worker Name Role Phone Maria De Jesus Espinal MD Primary Care Provider [phone] Allergies Active Allergy Reactions Criticality Noted Date Comments Latex Rash Low 02/08/2019 Medications amLODIPine (NORVASC) 5 MG tablet Take 1 tablet (5 mg total) by mouth daily. 2 Active Carboxymethylce llulose Sodium 1 % Gel Apply 1 drop to eye every other day. Active TOUJEO MAX SOLOSTAR 300 UNIT/ML Solution Pen-injector Inject 56 Units into the skin daily. 2 Active HUMALOG KWIKPEN 100 UNIT/ML injection (PEN) Inject 25 Units into the skin 2 (two) times daily. 2 Active linaCLOtide (LINZESS) 290 MCG capsule Take 1 capsule (290 mcg total) by mouth. Active olopatadine (PATADAY) 0.2 % Solution Place 2 drops into both eyes daily. Active omeprazole (PRILOSEC) 40 MG capsule TAKE 1 CAPSULE BY MOUTH EVERY DAY BEFORE BREAKFAST 2 Active Pregabalin 300 MG Cap Take 300 mg by mouth 2 (two) times daily. Active rosuvastatin (CRESTOR) 5 MG tablet Take 1 tablet (5 mg total) by mouth nightly at bedtime. 2 Active Senna (SENOKOT) 8.6 MG tablet Take 1 tablet (8.6 mg total) by mouth daily as needed for Constipation. Active sertraline (ZOLOFT) 100 MG tablet Take 2 tablets (200 mg total) by mouth daily. 2 Active Simethicone 180 MG Cap Take 180 mg by mouth daily as needed. Active temazepam (RESTORIL) 15 MG capsule Take 1 capsule (15 mg total) by mouth nightly as needed. Active tiZANidine HCl 4 MG Cap Take 4 mg by mouth. Active traZODone (DESYREL) 100 MG tablet Take 2 tablets (200 mg total) by mouth nightly at bedtime. Active butalbital-acet aminophen-caffe ine (FIORICET) 50-300-40 MG capsule Take 1 capsule by mouth every 4 (four) hours as needed for Headaches or Migraine. Active cetirizine-pseu doephedrine ER (ZYRTEC-D ALLERGY & CONGESTION) 5mg-120mg 12 hr tablet Take 1 tablet by mouth daily. Active budesonide-form oterol (SYMBICORT) 160-4.5 MCG/ACT inhaler Inhale 2 puffs into the lungs 2 (two) times daily. 10.2 g 2 Active methylPREDNISol one, TC, (MEDROL DOSEPAK) 4 MG tablet Follow package directions 1 each 2 Active ALPRAZolam (XANAX) 0.25 MG tablet Take 1 tablet (0.25 mg total) by mouth nightly as needed for Sleep. Active buprenorphine (BUTRANS) 15 MCG/HR patch Place 1 patch onto the skin every 7 days. Active Active Problems Problem Noted Date Diagnosed Date Acute non-recurrent maxillary sinusitis 11/07/19 22 Bronchitis 11/06/2021 KRISTEN (acute kidney injury) 11/05/2021 Social History Tobacco Use Types Packs/Day Years Used Date Smoking Tobacco: Never Smokeless Tobacco: Never Alcohol Use Standard Drinks/Week Comments No 0 (1 standard drink = 0.6 oz pur e alcohol) AUDIT-C Answer Date Recorded Frequency of Alcohol Consumption Never 02/08/2019 Average Number of Drinks Not on file 019 Frequency of Binge Drinking Not on file 01/29 Comments No Sex and Gender Information Value Date Recorded Sex Assigned at Not on file Legal Sex Female 5:35 PM CDT Gender Identity Not on file Sexual Orientation Not on file Last Filed Vital Signs Vital Sign Reading Time Taken Comments Blood Pressure 149/100 04/08/2023 2:30 AM TRAVEL JOURNALIST Pulse 75 04/08/2023 2:30 AM TRAVEL JOURNALIST Temperature 36.6 C (97.8 F) 04/08/2023 2:30 AM TRAVEL JOURNALIST Respiratory Rate 22 04/08/2023 2:30 AM TRAVEL JOURNALIST Oxygen Saturation 96% 04/08/2023 2:30 AM TRAVEL JOURNALIST Inhaled Oxygen Concentration - - Weight 113.4 kg (250 lb) 04/07/2023 11:21 PM TRAVEL JOURNALIST Height 152.4 cm (5') 04/07/2023 11:21 PM TRAVEL JOURNALIST Body Mass Index 48.82 04/07/2023 11:21 PM TRAVEL JOURNALIST Plan of Treatment Health Maintenance Due Date Last Done Comments Cervical Cancer Screening Pap Smear (Age 30 to 64) Every 3 Years 1961 Colorectal Cancer Screening Colonoscopy (10 Years) 1961 Annual Physical 1964 Hepatitis C 1979 Cervical Cancer Screening Pap with HPV Testing (Age 30 to 64) Every 5 Years 1991 Cervical Cancer Screening with HPV 1991 Mammogram Screening 2001 Zoster Vaccines (1 of 2) 2011 RSV Immunization or 60+ Years (1 - Risk 60-74 years 1-dose series) 2021 COVID-19 Vaccine (2 - season) 2023 07/08/2020 Influenza Adult (#1) 2023 01/23/2022, 12/28/2020, 01/18/2020, Additional history exists DTaP, Tdap and Td Vaccines (3 - Td or Tdap) 12/27/2024 12/27/2014, 02/04/2013 Pneumococcal Vaccine: Pediatrics (0 to 5 Years) and At-Risk Patients (6 to 64 Years) Aged Out 05/20/2017, 02/28/2016, 01/02/2015 No longer eligible based on patient's age to complete this topic Meningococcal B Vaccine Aged Out No l onger eligible based on patient's age to complete this topic Meningococcal Vaccine Aged Out No virgilio tia eligible based on patient's age to complete this topic RSV Immunizations Under 20 Months Aged Out No longer eligible based on patient's age to complete this topic Goals Goal Patient Goal Type Associated Problems Recent Progress Patient-Stated? Author Safety - demonstrates understanding of home safety measures Lifestyle No Amber Kemp, RN Insurance MEDICARE Advance Directives * Full Code (Latest Code Status on File) Date Activated Date Inactivated Comments 11/05/2021 10:54 PM 11/07/2021 5:53 PM Care Teams Hothouse Worker Relationship Specialty Start Date End Date Maria De Jesus Espinal MD PCP - General INTERNAL MEDICINE 11/26/21
--- OUTSIDE RECORDS SUMMARY | 2024-05-12 13:44 | XMS_ITS | Encounter Summary ---
Author Organization [facility] Healthcare Address [address] [place] [address] Care Team Providers Care Master Mechanic Name Role Phone Karen Turk MD Primary Care Provider Albaro Donahue MD Unavailable [phone] Jenna Velazquez OT Unavailable Unavailab Laurie Solano OT Unavailable [phone] Meg Espinal MD Primary Care Provider Meg Espinal MD Primary Care Provider Simran Tapia MD Unavailable [phone] Encounter Details Date Type Department Care Team (Late st Contact Info) Description 01/17/2018 Documentation [facility] Anesthesia [address] [place] [address] Everton Mead MD [address] [place] [address] Social History Tobacco Use Types Packs/Day Years Used Date Smoking Tobacco: Never Smokeless Tobacco: Never Alcohol Use Standard Drinks/Week Comments No 0 (1 standard drink = 0.6 oz pur e alcohol) Comments No Sex and Gender Information Value Date Recorded Sex Assigned at Not on file Legal Sex Female 12:13 AM PACKING TRACTOR MACHINE OPERATOR Gender Identity Not on file Sexual Orientation Not on file documented as of this encounter Plan of Treatment Not on file documented as of this encounter Visit Diagnoses Not on filedocumented in this encounter Care Teams Master Mechanic Relationship Specialty Start Date End Date Karen Turk MD PCP - General 08/26/17 10/27/22 Meg Espinal MD PCP - General Diagnostic Radiology 10/28/22 11/18/22 Meg Espinal MD PCP - General Diagnostic Radiology 11/25/22 Albaro Donahue MD [address] [facility] [place] [address] Surgeon Orthopedic Surgery 12/03/17 05/17/18 Jenna Velazquez, OT Occupational Therapist Occupational Therapy 12/03/1705/12 Laurie Sterling, OT Occupational Therapist Occupational Therapy 05/13/18 Simran Tapia MD [address] [place] [address] Anesthesiologist Pain Management 01/15/24 documented as of this encounter
--- OUTSIDE RECORDS SUMMARY | 2024-05-12 13:44 | XMS_ITS | Encounter Summary ---
Author Organization [facility] Healthcare Address [address] [place] [address] Care Team Providers Care Internet Marketing Strategist Name Role Phone Karen Turk MD Primary Care Provider Albaro Donahue MD Unavailable Jenna Velazquez OT Unavailable Unavailab Laurie Solano OT Unavailable [phone] Meg Espinal MD Primary Care Provider Meg Espinal MD Primary Care Provider Simran Tapia MD Unavailable Encounter Details Date Type Department Care Team (Late st Contact Info) Description 01/17/2018 Telephone [facility] Anesthesia [address] [facility] [place] [address] Everton Mead MD [address] [place] [address] Social History Tobacco Use Types Packs/Day Years Used Date Smoking Tobacco: Never Smokeless Tobacco: Never Alcohol Use Standard Drinks/Week Comments No 0 (1 standard drink = 0.6 oz pur e alcohol) Comments No Sex and Gender Information Value Date Recorded Sex Assigned at Not on file 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 Gender Identity Not on file Sexual Orientation Not on file documented as of this encounter Plan of Treatment Not on file documented as of this encounter Visit Diagnoses Not on filedocumented in this encounter Care Teams Internet Marketing Strategist Relationship Specialty Start Date End Date Karen Turk MD PCP - General 08/26/17 10/27/22 Meg Espinal MD PCP - General Diagnostic Radiology 10/28/22 11/18/22 Meg Espinal MD PCP - General Diagnostic Radiology 11/25/22 Albaro Donahue MD [address] [facility] / [place] [address] Surgeon Orthopedic Surgery 12/03/17 05/17/18 Jenna Velazquez, OT Occupational Therapist Occupational Therapy 12/03/1705/12 Laurie Sterling, OT Occupational Therapist Occupational Therapy 05/13/18 Simran Tapia MD [address] [place] [address] Anesthesiologist Pain Management 01/15/24 documented as of this encounter
--- OUTSIDE RECORDS SUMMARY | 2024-05-12 13:44 | XMS_ITS | Continuity of Care Document ---
Author Organization [facility] Address [address] [place] [address] Phone Care Team Providers Care Hide Splitter Name Role Phone Diego Orlando MD Unavailable Unavailable Allergies, Adverse Reactions, Alerts Substance Reaction Status Criticality lamotrigine Active No Information topiramate Active No Information latex Active No Information RIZATRIPTAN BENZOATE Active No Info rmation SUMATRIPTAN SUCCINATE Active No Inf ormation sumatriptan Active No Information sumatriptan Active No Information NSAIDS (Non-Steroidal Anti-Inflammatory Drug) Active No Information grass pollen Active No Information mold Active No Information Medications Medication Instructions Dosage Effective Dates (start - stop) Status Comments OxyContin 15 mg tablet,crush resistant,extended release take 1 tablet by oral route every 12 hours 15 MG - Active Lidocare 4 % topical patch 3 patches wear for 12 hours daily - Active ipratropium bromide 0.02 % solution for inhalation - Active Linzess 145 mcg capsule take 1 capsule by oral route every day on an empty stomach at least 30 minutes before 1st meal of the day 145 MCG - Active Fioricet 50 mg-300 mg-40 mg capsule take 1 capsule by oral route every 4 hours as needed - Active sucralfate 1 gram tablet take 1 tablet by oral route bid - Active fentanyl 25 mcg/hr transdermal patch apply 1 patch by transdermal route every 72 hours 25 MCG/H - Active Singulair 10 mg tablet take 1 tablet by oral route every day in the evening 10 MG - Active mupirocin 2 % topical ointment apply by topical route 3 times every day a small amount to the affected area 0.00 - Active losartan 25 mg tablet take 1 tablet by oral route every day 25 MG - Active Lyrica 200 mg capsule take 1 capsule by oral route every day 200 MG - Active Prozac 20 mg capsule take 2 in am and 3 every pm - Active trazodone 50 mg tablet take 0.5 tablet by oral route every hs - Active Valtrex 500 mg tablet take 1 tablet by oral route every 12 hours - Active 16.2 mg-0.1037 mg-0.0194 mg tablet one tab tid - Active ChlorTabs 4 mg tablet take 1 tablet by oral route every 4 hours as needed 4 MG - Active Hemorrhoidal Cream 0.25 %-1 % rectal - Active Flonase 50 mcg/actuation nasal spray,suspension inhale 1 spray by intranasal route every day in each nostril - Active Zyrtec-D 5 mg-120 mg tablet,extended release take 1 tablet by oral route every 12 hours 1.00 tablet - Active Symbicort 80 mcg-4.5 mcg/actuation HFA aerosol inhaler inhale 2 puff by inhalation route 2 times every day in the morning and evening 2.00 puff - Active Ventolin HFA 90 mcg/actuation aerosol inhaler inhale 2 puff by inhalation route every 4 - 6 hours as needed - Active aspirin 81 mg chewable tablet chew 1 tablet by oral route every day 81 MG - Active Protonix 40 mg tablet,delayed release take 1 tablet by oral route every day 40 MG - Active Vitamin D3 400 unit capsule - Active Foltrate 0.5 mg-1 mg tablet take 1 tablet by oral route every day 1.00 tablet - Active Zofran 4 mg tablet take 2 tabs once a day - Active Procedures Procedure Date OFFICE/OUTPATIENT VISIT EST OFFICE/OUTPATIENT VISIT EST OFFICE/OUTPATIENT VISIT EST OFFICE/OUTPATIENT VISIT EST OFFICE/OUTPATIENT VISIT EST OFFICE/OUTPATIENT VISIT EST OFFICE/OUTPATIENT VISIT NEW Advance Directives Directive Yes / No Effective Date File Name No Information Encounters Encounter Description Practice Location Reason(s) For Visit Diagnoses Date Provider Providers Copied on Encounter [facility], [address] [place] [address], [place], [address], [place] tel:[phone] [facility] No Information 8 Johanny Cortez. [address], [place], [place], [id number] . tel: [phone] OFFICE/OUTPA TIENT VISIT [facility], [address] [place] [address] [address], [place], [address], [place] tel:[phone] [facility] FU R KNEE (chief complaint) Primary osteoarthritis of right knee 8 Lamar Orona. [address] [facility] [address], [place], [place], [id number] . tel: [phone] OFFICE/OUTPA TIENT VISIT [facility], [address] [place] [address], [place], [address], [place] [phone] [facility] Follow Up of RT KNEE C/O LT FOOT/ANKLE (chief complaint) Knee effusion, rightPrimary osteoarthritis of right kneeOther synovitis and tenosynovitis, left ankle and foot 7 Edilma Miller. [address] [place] [address], [id number] . tel: [phone] OFFICE/OUTPA TIENT VISIT [facility], [address] [place] [address], [place], [address], [place] tel:[phone] [facility] Follow Up of RT KNEE (chief complaint) Knee effusion, rightPrimary osteoarthritis of right knee 7 Lamar Orona. [address] [facility] [address], [place], [place], [id number] . tel: [phone] OFFICE/OUTPA TIENT VISIT [facility], [address] [place] [address], [place], [address], [place] [phone] [facility] Tear of medial meniscus of right knee, current, unspecified tear type, initial encounterPre-op chest examPre-op testingPre-oper ative cardiovascular examinationBody mass index (BMI) 37.0-37.9, adult Aug- 7 Edilma Miller. [address] [place] [address], [id number] . tel: [phone] Referring Provider: Karen Gleason, [address], [place], [address]. tel:[phone] OFFICE/OUTPA TIENT VISIT [facility], [address] [place] [address], [place], [address], [place] [phone] [facility] Unilateral primary osteoarthritis, right kneeTear of medial meniscus of right knee, current, unspecified tear type, initial encounter 7 Lamar Yeyo. [address] [facility] [address], [place], [place], [id number] . tel: [phone] OFFICE/OUTPA TIENT VISIT [facility], [address] [place] [address] [address], [place], [address], [place] [phone] [facility] RT KNEE (chief complaint) Body mass index (BMI) 37.0-37.9, adultUnilateral primary osteoarthritis, right knee 7 Edilma Miller. [address] [place] [address], [id number] . tel: [phone] Family History Family Member Type Diagnosis Age At Onset Sister Problem (finding) Alive and well Payers Payer name Insurance type Covered republican ID Authoriza tion(s) No Information Social History Type Description Quantity Date Captured Comments Alcohol Use Details Unknown Caffeine Use Details Unknown Tobacco Use Status No Information Smoking Status No Information Sex Female Chief Complaint And Reason For Visit No Information Reason For Referral Reason For Referral No Information Plan Of Treatment Date Type Action Status Referral Ordered: May Sánchez -[employer] (related to Body mass index (BMI) 40.0-44.9, adult) ordered Referral Ordered: RADEX FOOT COMPL MINIMUM 3 VIEWS LT ordered Referral Ordered: RADEX ANKLE 2 VIEWS LT ordered Referral Ordered: May Sácnhez -[employer] (related to Body mass index (BMI) 37.0-37.9, adult) ordered Referral Ordered: RADEX KNE COMPL 4/MORE VIEWS RT ordered Referral Referred To: May Sánchez [address] [facility] [place], [phone] Ordered: Referrals: May Sánchez -[employer] Evaluate and treat ordered Referral Ordered: RADEX CH 2 VIEWS FRNT&LAT ordered Referral Ordered: B1&/JT IMG WHBDY Appointment date/timeframe: 12/03/2016 ordered Referral Ordered: ELECTROCARDIOGRAM COMPLETE ordered Referral Ordered: X-RAY EXAM OF FEMUR 2/> RT ordered Referral Ordered: CT LXTR C+ MATRL RT knee Appointment date/timeframe: 08/27/2016 ordered Future Order: Lab Order Anaerobi c/Aerobic/Gram Stain ([id number]), Ordered on: Ordered Future Order: Lab Order Cell Cou nt, Synovial Fluid ([id number]), Ordered on: Ordered Future Order: Lab Order Culture And Sensitivity ([id number]), Ordered on: Ordered Future Order: Lab Order CBC ([id number]), O rdered on: Ordered Future Order: Lab Order C-Reacti ve Protein, Quant ([id number]), Ordered on: Ordered Future Order: Lab Order Sed rate ([id number]), Ordered on: Ordered Future Order: Lab Order Urinalys is, Routine ([id number]), Ordered on: Ordered History Of Present Illness Encounter Date Complaint History Of Prese nt Illness FU R KNEE Follow Up of RT KNEE C/O LT FOOT /ANKLE Follow Up of RT KNEE RT KNEE Functional Status Date Functional Assessmen t No Information Instructions Date Instruction Additional Infor mation Giving encouragement to exercise Related to Body mass index (BMI) 40.0-44.9, adult activity as tolerated Related to Primary osteoarthritis of right knee apply heating pad or ice as tolerated Related to Primary osteoarthritis of right knee activity as tolerated Related to Primary osteoarthritis of right knee immobilize if directed Related t o Primary osteoarthritis of right knee home exercise program Related to Primary osteoarthritis of right knee Avoid prolonged bed rest Related to Knee effusion, right Ice as tolerated Related to Knee effusion, right Watch for signs of infection Rel ated to Knee effusion, right Call if elevated temperature Rel ated to Knee effusion, right Use of assistive devices as need ed Related to Knee effusion, right activity as tolerated Related to Primary osteoarthritis of right knee apply heating pad or ice as tolerated Related to Primary osteoarthritis of right knee elevate higher than your heart R elated to Primary osteoarthritis of right knee immobilize if directed Related t o Primary osteoarthritis of right knee home exercise program Related to Primary osteoarthritis of right knee Take medication as directed. Rel ated to Knee effusion, right Activity as tolerated. Related t o Knee effusion, right Weight monitoring Related to Bod y mass index (BMI) 37.0-37.9, adult elevate limb above l evel of the heart Related to Tear of medial meniscus of right knee, current, unspecified tear type, initial encounter use ice as instructed Related to Tear of medial meniscus of right knee, current, unspecified tear type, initial encounter Giving encouragement to exercise Related to Body mass index (BMI) 37.0-37.9, adult Fall risk home exerc ise program handout provided Assessments Type Assessment Date No Information Patient Care Teams Name Effective Dates (start - stop) Status Members No Information
--- OUTSIDE RECORDS SUMMARY | 2024-05-12 13:44 | XMS_ITS | Encounter Summary ---
Author Organization [facility] Healthcare Address [address] [place] [address] Care Team Providers Care Network Support Specialist Name Role Phone Karen Turk MD Primary Care Provider Albaro Donahue MD Unavailable [phone] Jenna Velazquez OT Unavailable Unavailab Laurie Solano OT Unavailable [phone] Meg Espinal MD Primary Care Provider Meg Espinal MD Primary Care Provider Simran Tapia MD Unavailable [phone] Encounter Details Date Type Department Care Team (Late st Contact Info) Description 01/17/2018 Documentation [facility] Anesthesia [address] [place] [address] Everton Mead MD [address] [place] [address] Social History Tobacco Use Types Packs/Day Years Used Date Smoking Tobacco: Never Smokeless Tobacco: Never Alcohol Use Standard Drinks/Week Comments No 0 (1 standard drink = 0.6 oz pur e alcohol) Comments No Sex and Gender Information Value Date Recorded Sex Assigned at Not on file 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 Gender Identity Not on file Sexual Orientation Not on file documented as of this encounter Plan of Treatment Not on file documented as of this encounter Visit Diagnoses Not on filedocumented in this encounter Care Teams Network Support Specialist Relationship Specialty Start Date End Date Karen Turk MD PCP - General 08/26/17 10/27/22 Meg Espinal MD PCP - General Diagnostic Radiology 10/28/22 11/18/22 Meg Espinal MD PCP - General Diagnostic Radiology 11/25/22 Albaro Donahue MD [address] [facility] [place] [address] Surgeon Orthopedic Surgery 12/03/17 05/17/18 Jenna Velazquez, OT Occupational Therapist Occupational Therapy 12/03/1705/12 Laurie Sterling, OT Occupational Therapist Occupational Therapy 05/13/18 Simran Tapia MD [address] [place] [address] Anesthesiologist Pain Management 01/15/24 documented as of this encounter
--- OUTSIDE RECORDS SUMMARY | 2024-05-12 13:44 | XMS_ITS | Encounter Summary ---
Author Organization [facility] Healthcare Address [address] [place] [address] Care Team Providers Care Systems Admin Name Role Phone Meg Espinal MD Primary Care Provider Simran Tapia MD Unavailable [phone] Reason for Visit * Reason Onset Date Comments PMC Preprocedure 06/12/2023 MyChart message Encounter Details Date Type Department Care Team (Late st Contact Info) Description 06/12/2023 Telephone [facility] [address] [facility] [address] [place] [address] Simran Tapia MD [address] [place] [address] PMC Preprocedure (MyChart message ) Social History Tobacco Use Types Packs/Day Years Used Date Smoking Tobacco: Never Passive Smoke Exposure: Never Smokeless Tobacco: Never Alcohol Use Standard Drinks/Week Comments No 0 (1 standard drink = 0.6 oz pur e alcohol) AUDIT-C Answer Date Recorded Q1: How often do you have a drink containing alcohol? Never 06/16/2023 Q2: How many drinks containi ng alcohol do you have on a typical day when you are drinking? Patient does not drink Q3: How often do you have si x or more drinks on one occasion? 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 Minimize further functional decline 2. Maximize quality of life 3. Control pain Strategies: - Activity/exercise program recommendation - Conservative stepwise pain medicine strategy with multi-disciplinary approach - Recommend healthy lifestyle strategies and compensatory methods as needed documented as of this encounter Visit Diagnoses Not on filedocumented in this encounter Care Teams Systems Admin Relationship Specialty Start Date End Date Meg Espinal MD PCP - General Diagnostic Radiology 11/25/22 Simran Tapia MD [address] [place] [address] Anesthesiologist Pain Management 01/15/24 documented as of this encounter
--- OUTSIDE RECORDS SUMMARY | 2024-05-12 13:49 | XMS_ITS | Continuity of Care Document ---
Author Organization [facility] Address [address] [place] [address] Phone Care Team Providers Care Liberal Arts Dean Name Role Phone Diego Orlando MD Unavailable [...] Diagnoses Date Provider Providers Copied on Encounter [facility], [address] [place] [address], [place], [address], [place] tel:[phone] [facility] No Information 8 Johanny Cortez. [address] [facility], [place], [place], [id number] . tel: [phone] OFFICE/OUTPA TIENT VISIT [facility], [address] [place] [address] 200, [place], [address], [place] tel:[phone] [facility] FU R KNEE (chief complaint) Primary osteoarthritis of right knee 8 Lamar Orona. [address], [place], [place], [id number] . tel: [phone] OFFICE/OUTPA TIENT VISIT [facility], [address] [place] [address], [place], [address], [place] [phone] [facility] Follow Up of RT KNEE C/O LT FOOT/ANKLE (chief complaint) Knee effusion, rightPrimary osteoarthritis of right kneeOther synovitis and tenosynovitis, left ankle and foot 7 Edilma Miller. [address] [place] [address], [id number] . tel: [phone] OFFICE/OUTPA TIENT VISIT [facility], [address] [place] [address], [place], [address], [place] tel:[phone] [facility] Follow Up of RT KNEE (chief complaint) Knee effusion, rightPrimary osteoarthritis of right knee 7 Lamar Orona. [address], [place], [place], [id number] . tel: [phone] OFFICE/OUTPA TIENT VISIT [facility], [address] [place] [address] [address], [place], [address], [place] [phone] [facility] Tear of medial meniscus of right knee, current, unspecified tear type, initial encounterPre-op chest examPre-op testingPre-oper ative cardiovascular examinationBody mass index (BMI) 37.0-37.9, adult Aug- 7 Edilma Miller. [address] [place] [address], [id number] . tel: [phone] Referring Provider: Karen Gleason, [address], [place], [address]. tel:[phone] OFFICE/OUTPA TIENT VISIT [facility], [address] [place] [address], [place], [address], [place] [phone] [facility] Unilateral primary osteoarthritis, right kneeTear of medial meniscus of right knee, current, unspecified tear type, initial encounter 7 Lamar Yeyo. [address] [facility] [address], [place], [place], [id number] . tel: [phone] OFFICE/OUTPA TIENT VISIT [facility], [address] [place] [address] [address], [place], [address], [place] [phone] [facility] RT KNEE (chief complaint) Body mass index (BMI) 37.0-37.9, adultUnilateral primary osteoarthritis, right knee 7 Edilma Miller. [address] [place] [address], [id number] . tel: [phone] Family History Family Member Type Diagnosis Age At Onset Sister Problem (finding) Alive and well Payers Payer name Insurance type Covered democrat ID Authoriza tion(s) No Information Social History Type Description Quantity Date Captured Comments Alcohol Use Details Unknown Caffeine Use Details Unknown Tobacco Use Status No Information Smoking Status No Information Sex Female Chief Complaint And Reason For Visit No Information Reason For Referral Reason For Referral No Information Plan Of Treatment Date Type Action Status Referral Ordered: May Sánchez -Explosive Ordnance Technician (related to Body mass index (BMI) 40.0-44.9, adult) ordered Referral Ordered: RADEX FOOT COMPL MINIMUM 3 VIEWS LT ordered Referral Ordered: RADEX ANKLE 2 VIEWS LT ordered Referral Ordered: May Sánchez -Explosive Ordnance Technician (related to Body mass index (BMI) 37.0-37.9, adult) ordered Referral Ordered: RADEX KNE COMPL 4/MORE VIEWS RT ordered Referral Referred To: May Sánchez [address] [facility] [place], [phone] Ordered: Referrals: May Sánchez -Explosive Ordnance Technician Evaluate and treat ordered Referral Ordered: RADEX CH 2 VIEWS FRNT&LAT ordered Referral Ordered: B1&/JT IMG WHBDY Appointment date/timeframe: 12/03/2016 ordered Referral Ordered: ELECTROCARDIOGRAM COMPLETE ordered Referral Ordered: X-RAY EXAM OF FEMUR 2/> RT ordered Referral Ordered: CT LXTR C+ MATRL RT knee Appointment date/timeframe: 08/27/2016 ordered Future Order: Lab Order Anaerobi c/Aerobic/Gram Stain ([id number]), Ordered on: Ordered Future Order: Lab Order Cell Cou nt, Synovial Fluid ([id number]), Ordered on: Ordered Future Order: Lab Order Culture And Sensitivity ([id number]), Ordered on: Ordered Future Order: Lab Order CBC ([id number]), O rdered on: Ordered Future Order: Lab Order C-Reacti ve Protein, Quant ([id number]), Ordered on: Ordered Future Order: Lab Order Sed rate ([id number]), Ordered on: Ordered Future Order: Lab Order Urinalys is, Routine ([id number]), Ordered on: Ordered History Of Present Illness [...]
--- OUTSIDE RECORDS SUMMARY | 2024-05-12 13:49 | XMS_ITS | Patient Health Record ---
Author Organization [facility] Address [address] [address] Care Team Providers Care First Breaker Feeder Name Role Phone Silvino Sol MD Primary Care Provider CATHY Lanier Unavailable [phone] Allergies Allergen (clinical drug ingredient) Drug/Non Drug Allergy documented on EMR Reaction Allergy Type Onset Date Status rizatriptan Maxalt Unknown Drug Allergy Activ e Latex Gloves Unknown Drug Allergy Acti ve Reason For Referral No Information Medications Medication SIG (Take, Route, Frequency, Duration) Notes Start Date End Date Status Zofran 4 MG 2 tablets Orally onc e daily Active traZODone HCl 50 MG 0.5 tablet at bedtim e Orally Once a day Active Aspirin 81 Active Albuterol Sulfate HFA Active Chlor-Tablets 4 1 orally q 4 hrs Active fentaNYL 25 MCG/HR 1 patch to skin Transdermal q72 hours for 30 days 08/25/2019 Active Symbicort 160-4.5 MCG/ACT 2 puffs Inhalation Twice a day Active [place] 10-325 MG 1 tablet as needed Orally QID x1 week, then TID x1 week. then BID x1 week. then daily x1 week for 28 days 08/25/2019 Active Sertraline HCl 100 MG 2 tablet Orally On ce a day Active amLODIPine Besylate 5 MG 1 tablet Orally Once a day Active ZyrTEC Allergy 10 MG 1 tablet Orally Onc e a day Active Mupirocin 2 % 1 application to affected area Externally Three times a day Active Meloxicam 15 MG 1 tablet Orally Once a day for 30 Active Pataday 0.2 % INSTILL ONE DROP INT O BOTH EYES TWICE A DAY Ophthalmic for 60 Active Fluticasone Propionate 50 MCG/ACT INHALE 2 SPRAYS IN EACH NOSTRIL ONCE A DAY Nasal for 30 Active Ipratropium [place] 0.06 % INHALE 2 SPRAYS IEN QID Nasal for 30 Active Linzess 290 MCG 1 capsule Orally Onc e a day Active Montelukast Sodium 10 MG TAKE ONE TABLET BY MOUTH ONCE DAILY Oral for 30 Active tiZANidine HCl 4 MG 1 capsule as needed Orally Three times a day and 1 at bed prn for 30 days Active fentaNYL 50 MCG/HR 1 patch to skin Transdermal Active Lidocaine 5 % APPLY 3 PATCH ON FOR 12 HOURS OFF FOR 12 HOURS, NO MORE THAN 3 PATCHES Externally Once a day for 30 days Active Lyrica 300 MG 1 capsule Orally Twi ce a day Active Meloxicam 15 MG 1 tablet Orally Once a day for 30 days Active Xanax 0.5 MG 1 tablet Orally Twic e a day Not-Taking Naproxen 500 MG 1 tablet with food o r milk as needed Orally every 12 hrs for 30 days Not-Humberto ing [place] 10-325 MG 1 tablet as needed Orally every 6 hrs Active Stool Softener Activ e Problems Problem Type SNOMED Code ICD Code Onset Dates Problem Status W/U Status Risk Notes Problem 13822698 Other chronic pain (G89.29) Active confirmed Problem 93282726 Pain in right knee (M25.561) Active confirmed Problem 17394977 Other spondylosi s with myelopathy, 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) Active confirmed Problem 299160342 Other spondylosi s with radiculopathy, cervical region (M47.22) Active confirmed Problem 95607010452813056 Trochanteric bursitis, right hip (M70.61) Active confirmed Problem 56573866 Sacroiliitis (M46.1) Active confirmed Problem 528588251398380 Trochanteric bursitis of left hip (M70.62) Active confirmed Problem 705553138 Lumbar radiculopathy (M54.16) Active confirmed Problem 27832638 Cervical radiculopathy (M54.12) Active confirmed Problem 90797477 Spondylosis of lumbosacral region without myelopathy or radiculopathy (M47.817) Active confirmed Problem 421301448 Spondylosis of cervical region without myelopathy or radiculopathy (M47.812) Active confirmed Problem 495330831543888 Primary osteoarthritis of left knee (M17.12) Active confirmed Problem 408537966 Rheumatoid arthritis involving multiple sites, unspecified rheumatoid factor presence (M06.9) Active confirmed Problem 165957406 Primary osteoarthritis of right knee (M17.11) Active confirmed Problem 537505293 Lumbar spondylolysis (M43.06) Active confirmed Problem Pain of left hip joint (324739892962951) Pain of left hip joint (M25.552) Active confirmed Problem 056027238 Lumbar spondylosis (M47.816) Active confirmed Problem 380210478 Left ankle pain, unspecified chronicity (M25.572) Active confirmed Problem 253788101 Right-sided thoracic back pain, unspecified chronicity (M54.6) Active confirmed Problem 695422190 Right ankle pain , unspecified chronicity (M25.571) Active confirmed Plan Of Treatment Pending Test Test Name Order Date X ray : Rib series, right 07/03/2017 X ray : Thoracic spine [address] Scan : Thoracic spine 07/09/2017 Insurance Providers Payer Name Payer Address Payer Phone Subscriber Number Group Number Insured Name Patient Relationship to Insured Coverage Start Date Coverage End Date [place]IC[place] [address] [address] [place] [address] [id number] MINESH PEREZ Self - patient is the insured Medical (General) History Medical History History ICD Code COPD Depression Bi Polar Migraines Hypertension Surgical History Surgery Date(Month/Year) Femur reconstructive surgery Total right knee replacement 08/11/18 Hospitalization History Reason Date(Month/Year) Hypokalemia after starting a diuretic
[2024-05-12 13:51] VITALS: BP 184/82; PULSE 96; RESP 20; TEMP 36.4; O2SAT 93
--- NOTE | 2024-05-12 13:51 | ED_ITS ---
HPI - General Adult General Chief complaint: Upper Respiratory Infection Stated complaint: cough Time Seen by Provider: 05/12/24 13:51 Source: patient and family Mode of arrival: ambulatory (with walker) Limitations: no limitations History of Present Illness HPI narrative: Patient presents with shortness of breath today. She reports a history of COPD. Pulse ox 93 Patient reports she was sent to urgent care today for chest x-ray, COVID, and flu testing as recommended by her primary care provider. Related Data Allergies Allergy/AdvReac Type Severity Reaction Status Date / Time rizatriptan Allergy Mild HEART Verified 05/12/24 13:51 PALPITATION ARM NUMBNESS sumatriptan Allergy Mild HEART PAIN Verified 05/12/24 13:51 PALPITATION ARM NUMBNESS SEROTONINAGONIS Allergy Mild HEART Uncoded 07/13/08 11:37 PALPITATION ARM NUMBNESS Review of Systems Review of Systems: CONSTITUTIONAL: Denies fever, chills, or sweats. EYES: Denies visual changes, redness, or discharge. ENT: Denies rhinorrhea, congestion, sore throat, or otalgia. CARDIOVASCULAR: Denies chest pain, palpitations, or edema. RESPIRATORY: Denies cough or dyspnea. GASTROINTESTINAL: Denies abdominal pain, nausea, vomiting, or diarrhea. GENITOURINARY: Denies dysuria or hematuria. SKIN: Denies rash or itching. MUSCULOSKELETAL: Denies back pain, joint pain, or myalgia. NEUROLOGIC: Denies headache, numbness, or weakness. PSYCHIATRIC: Denies anxiety or depression. All other systems reviewed are negative, except as documented in HPI. Exam Narrative: GENERAL: This is a well-nourished, well-developed patient, in no apparent distress. HEAD: normocephalic, atraumatic. EYES: PERRL. Sclera clear/white. Vision is grossly intact. EARS: External ears normal, auditory canals clear and without drainage, TMs normal without perforation. Hearing grossly intact. NOSE: External nose normal with no obvious nasal discharge, nares without redness, no rhinorrhea. THROAT: Mucous membranes moist, posterior pharynx clear. NECK: Neck supple, non-tender without lymphadenopathy, masses or thyromegaly. CARDIOVASCULAR: Regular rate and rhythm without murmurs, gallops, or rubs. RESPIRATORY: Clear to auscultation. Breath sounds equal bilaterally. No wheezes, rales, or rhonchi. GASTROINTESTINAL: Abdomen soft, non-tender, nondistended. Bowel sounds are ac tive. No hepato-splenomegaly, or palpable masses. No guarding. SKIN: warm, Dry, intact with no suspicious lesions or rash, good texture and turgor. NEURO: awake, alert, and oriented to person, place and time. There were no obvious focal neurologic abnormalities. EXTREMITIES: No joint tenderness, effusion, or edema noted. No calf tenderness. Negative Homans sign bilaterally. BACK: Nontender without deformity. No CVA tenderness. Course Course Emergency Course: Patient is aware of diagnosis, understands and agrees to treatment plan. Anticipatory guidance was given. Patient agrees to follow-up as directed and is aware of reasons to seek care at the emergency department. Please be advised this is a medical document. It is intended for owst-yq-uqlt communication. It is written in medical language and may contain unfamiliar abbreviations or verbiage. Medical documents are intended to carry relevant information, facts as evident, and the clinical opinion of the practitioner at the time of the encounter. This report may have been done utilizing a voice recognition system. Attempts pineda ve been made to correct errors. However, there may be uncorrected grammatical, spelling, and recognition errors present. The file time of this note does not necessarily represent the time the patient was seen. Level of Care: Express Care Visit Vital Signs Vital signs: Vital Signs Temperature 36.4 C L 05/12/24 13:51 Pulse Rate 96 05/12/24 13:51 Respiratory Rate 20 05/12/24 13:51 Blood Pressure 184/82 H 05/12/24 13:51 Pulse Oximetry 93 05/12/24 13:51 Oxygen Delivery Room Air 05/12/24 13:51 Temperature 36.4 C L 05/12/24 13:51 Pulse Rate 96 05/12/24 13:51 Respiratory Rate 20 05/12/24 13:51 Blood Pressure 154/72 H 05/12/24 14:16 Pulse Oximetry 93 05/12/24 13:51 Oxygen Delivery Room Air 05/12/24 13:51 Medical Decision Making MDM Narrative Medical decision making narrative: Results of chest x-ray reviewed with patient. Reviewed past note from December and past x-ray when patient had similar symptoms. Compared today's chest x- ray with past x-ray. Treated for bronchitis today. Discussed physical exam findings with patient and reviewed prescriptions. Advised supportive measures and reviewed signs symptoms for patient to the ER. The patient is in no acute distress and stable. Patient is appropriate for outpatient treatment and follow-up. Vital Signs Vital Signs: Vital Signs Temperature 36.4 C L 05/12/24 13:51 Pulse Rate 96 05/12/24 13:51 Respiratory Rate 20 05/12/24 13:51 Blood Pressure 184/82 H 05/12/24 13:51 Pulse Oximetry 93 05/12/24 13:51 Oxygen Delivery Room Air 05/12/24 13:51 Temperature 36.4 C L 05/12/24 13:51 Pulse Rate 96 05/12/24 13:51 Respiratory Rate 20 05/12/24 13:51 Blood Pressure 154/72 H 05/12/24 14:16 Pulse Oximetry 93 05/12/24 13:51 Oxygen Delivery Room Air 05/12/24 13:51 Lab Data Labs: Lab Results 05/12/24 Range/Units 14:23 POC Influenza A Ag Negative (Negative) POC Influenza B Ag Negative (Negative) POC SARS CoV-2 Ag Negative (Negative) Discharge Plan Discharge Clinical Impression: COPD exacerbation, Bronchitis Patient Disposition: Home, Self-Care Condition: Stable Instructions: Antibiotic Form, Acute Bronchitis (ED), COPD (Chronic Obstructive Pulmonary Disease) (DC), Atelectasis (ED) Additional Instructions: You were diagnosed with an exacerbation of your COPD and bronchitis today. You are being treated with antibiotics and steroids today. Your flu and COVID tests were negative. You had a chest x-ray done today that showed mild atelectasis of your right middle lung. Continue all other medications as prescribed. Keep follow-up with pulmonary as scheduled on May 14. If symptoms are not improving on this regimen, please return to clinic or follow up with PCP. If symptoms are worsening or you develop shortness of breath or trouble breathing or any other concern, proceed immediately to the ER. Patient Language: Burundian Prescriptions: New levofloxacin 500 mg tablet 500 mg PO DAILY Qty: 5 0RF methylprednisolone [Medrol (Jason)] 4 mg tablets,dose pack See Rx Instructions .ROUTE .COMPLEX Qty: 21 0RF Rx Instructions: orally per package directions Follow-up/Referrals: Mikey,Liborio Kessler [Other] Time of Disposition: 14:34
[2024-05-12 14:16] VITALS: BP 154/72
[2024-05-12 14:25] LABS: EDCOVIDSCREEN Negative (Negative); EDINFLUASCREEN Negative (Negative); EDINFLUBSCREEN Negative (Negative)
== END 2024-05-12 14:42 | disposition home or self-care (01) ==
PROVIDERS: Emergency Provider Nurse Practitioner
DX: J44.1 Chronic obstructive pulmonary disease with (acute) exacerbation (principal); J40 Bronchitis, not specified as acute or chronic; Z20.822 Contact with and (suspected) exposure to COVID-19
CPT/HCPCS: 71046; 87426; 87804; 99203; G0463